=== PATIENT | male | born 1990 | race Caucasian/White ===

== ENCOUNTER → 2020-12-13 | Outpatient (CLI) | payer OTHER ==
--- NOTE | 2020-12-13 14:36 | CONS ---
CONSULTATION DATE OF SERVICE: 12/13/2020 INDICATION: A 30-year-old gentleman who has been evaluated in the sleep center for possible obstructive sleep apnea-hypopnea syndrome. 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 And on weekends from 10 p.m. to 9 a.m. Usually no problems with falling asleep, although he has TV set in bedroom. He sleeps on the side position. According to his girlfriend, he snore loudly and has episodes of stopped breathing during sleep. The patient wakes up from sleep once with dry mouth and gasping for air. In the morning the patient wakes up tired, falling asleep during the day, has sexual dysfunction. PAST SURGICAL HISTORY: None. MEDICATIONS: Lisinopril 5 mg once a day, sildenafil, sertraline 50 mg once a day. REVIEW OF SYSTEMS: Awakenings from sleep, some sexual dysfunction. FAMILY HISTORY: Acid reflux, restless legs. SOCIAL HISTORY: Negative for smoking or using alcohol. PHYSICAL EXAMINATION: GENERAL: gentleman without any distress. VITAL SIGNS: BP 142/77 , HR 82 , RR 15, height 6' 2 1/2", weight 318.8, temperature 97.0, oxygen saturation at room air 97%. HEENT: PERRLA, EOMI, evaluation of oropharynx showed tongue protrudes midline. Moderately low position of soft palate, wide pillars, big uvula. NECK: Supple, no JVD. Thyroid is not palpable. Neck is 18 inches in circumference. LUNGS: Clear to percussion and to auscultation. Good air exchange. No wheezing or rhonchi. HEART: S1, S2 regular. No murmurs, gallops, or rubs. ABDOMEN: Soft and nontender. Bowel sounds are present. No organomegaly appreciated. Obese. EXTREMITIES: No clubbing or cyanosis. SPECIALTY FINISHING UTILITY PERSON: Awake, alert, and oriented X3. Cranial nerves 2 to 7 intact. There is no fasciculation or atrophy. noted. No focal deficits observed. IMPRESSION: 1. Loud snoring, witnessed episodes of stopped breathing during sleep, small oropharyngeal air space, wide neck 18 inches in circumference, obstructive sleep apnea-hypopnea syndrome. 2. Obesity. Body mass index 39.7. 3. Hypertension. 4. History of sexual dysfunction. 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 PLAN: 1. Home sleep apnea test for evaluation of patient's breathing during sleep. 2. CPAP/BiPAP titration if sleep study confirms obstructive sleep apnea-hypopnea syndrome. 3. Preferable position during sleep on the side. 4. No driving if patient feels any sleepiness. 5. I will see patient for follow up visit to explain results of testing and following plan. Thank you very much for referring this patient for consultation. Sincerely, Reuben Read MD, PhD, FAASM Diplomat of [place] [employer] [place] [employer] Dialysis Patient Care Technician of [facility] [place] MMODL / IJN: [id number] /
== END ==
LOC: SLEEP 09:56
PROVIDERS: ATTEND Internal Medicine
DX: G47.33 Obstructive sleep apnea (adult) (pediatric) (principal); I10 Essential (primary) hypertension; E66.9 Obesity, unspecified; Z68.39 Body mass index [BMI] 39.0-39.9, adult; Z87.438 Personal history of other diseases of male genital organs; Z79.899 Other long term (current) drug therapy
CPT/HCPCS: 99211

== ENCOUNTER → 2021-02-28 | Outpatient (CLI) | payer OTHER ==
--- NOTE | 2021-02-28 21:37 | SFUN ---
SLEEP CENTER FOLLOW UP NOTE DATE OF SERVICE: 02/28/2021 INTERVAL HISTORY: 30-year-old gentleman has been followed in Sleep Center for treatment of obstructive sleep apnea-hypopnea syndrome. Recently the patient had home sleep apnea test which showed extremely severe obstructive sleep apnea-hypopnea syndrome. Subsequently, patient was started on treatment with CPAP. Today is his first visit on CPAP therapy. The patient is able to use CPAP equipment every night for the whole night, feels significantly better while using CPAP equipment comparing to how he felt before. Other only negatives he indicate is the leak from the mask. I discussed results of the sleep study with the patient in details. I checked CPAP unit. Range of the pressure 5-20 cm of water with average pressure 10.9 cm of water. Usage is 29/30 nights for more than 4 hours with average usage is 7.1 hours per night. Leak is high at 74 L/minute. Apnea-hypopnea index is 3.7, which is normal. MEDICATIONS: Lisinopril 5 mg once a day, Sertraline 15 mg once a day. PHYSICAL EXAMINATION: GENERAL: Patient in no distress. BP 128/64, HR 62, RR 15, weight 309, temp 98.5, oxygen saturation at room air 97%. Oropharynx: Moderately low position of soft palate. NECK: Supple, no JVD. Thyroid is not palpable. LUNGS: Clear to percussion and to auscultation. Good air exchange. No wheezing or rhonchi. HEART: S1, S2 regular. No murmurs, gallops, or rubs. ABDOMEN: Soft and nontender. Bowel sounds are present. No organomegaly appreciated. EXTREMITIES: No clubbing or cyanosis. CLAIMS ADJUSTER: Awake, alert, and oriented X3. Cranial nerves 2 to 7 intact. There is no fasciculation or atrophy. noted. No focal deficits observed. IMPRESSION: 1. Extremely severe obstructive sleep apnea-hypopnea syndrome; apnea-hypopnea index 67.9 with oxygen desaturation to 55%. The patient demonstrated 100% compliance with treatment benefitting from treatment. Normal apnea-hypopnea index on CPAP. 2. Significant leak. The patient is using a full-face mask. 3. Obesity. 4. Hypertension. 5. History of sexual dysfunction. 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 PLAN: 1. Patient was treated with Dream Wear under the nose fullface mask. He likes it. The mask was given to the patient. 2. Patient will continue to use PAP equipment every night for the whole night. 3. Sleep hygiene with regular time in bed for at least 7-1/2 to 8 hours. 4. Precautions related to driving. No driving if feeling sleepiness. 5. I will maintain all necessary prescription for PAP supplies including mask, tube, filters. 6. Watching weight. 7. Follow-up visit in 6 months or earlier if patient has any problems. Thank you very much for allowing me to participate in management of your patient. Sincerely, Reuben Read MD, PhD, FAASM Diplomat of [place] [employer] Board of Internal Medicine Lead Neurodiagnostic Technologist of [facility] [place] MMODL / IJN: [id number] /
== END ==
LOC: SLEEP 14:16
PROVIDERS: ATTEND Internal Medicine
DX: G47.33 Obstructive sleep apnea (adult) (pediatric) (principal); G47.36 Sleep related hypoventilation in conditions classified elsewhere; E66.9 Obesity, unspecified; I10 Essential (primary) hypertension; Z99.89 Dependence on other enabling machines and devices; Z79.899 Other long term (current) drug therapy; Z87.438 Personal history of other diseases of male genital organs

== ENCOUNTER → 2021-09-05 | Outpatient (CLI) | payer OTHER ==
--- NOTE | 2021-09-06 07:13 | SFUN ---
SLEEP CENTER FOLLOW UP NOTE DATE OF SERVICE: 09/05/2021 31-year-old gentleman has been followed in Sleep Center for treatment of obstructive sleep apnea-hypopnea syndrome. Patient continued to use his CPAP equipment every night. He is using a fullface Dream Wear mask under the nose and he likes the mask. [place] Sleepiness Scale today is 2. I checked his CPAP unit. Range of the pressure 5-20, average pressure 12.4. Usage 28/30 nights for more than 4 hours with average usage 7.7 hours per night. Leak is higher than average 43 L/minute, but at the same time, apnea-hypopnea index is totally normal 1.8. CURRENT MEDICATIONS: Lisinopril 5 mg once a day, sertraline 50 mg once a day, . PHYSICAL EXAMINATION: GENERAL: Patient in no distress. BP 141/79, HR 66, RR 14, height 6 feet 2-3/4 inches, weight 305.4 pounds, body mass index 38.4, temperature 97.4, oxygen saturation at room air 99%. Oropharynx: Moderately low position of soft palate. NECK: Supple, no JVD. Thyroid is not palpable. LUNGS: Clear to percussion and to auscultation. Good air exchange. No wheezing or rhonchi. HEART: S1, S2 regular. No murmurs, gallops, or rubs. ABDOMEN: Slightly obese. Soft and nontender. Bowel sounds are present. No organomegaly appreciated. EXTREMITIES: No clubbing or cyanosis. BOILER WELDER: Awake, alert, and oriented X3. Cranial nerves 2 to 7 intact. There is no fasciculation or atrophy. noted. No focal deficits observed. IMPRESSION: 1. Extremely severe obstructive sleep apnea-hypopnea syndrome, apnea-hypopnea index 67.9 with oxygen desaturation to 55%. The patient demonstrated great compliance with treatment, benefitting from treatment. Normal respiration on the CPAP. 2. Since we changed his mask during the previous visit leak decreased. 3. Obesity. 4. Hypertension. 5. History of sexual dysfunction. 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 PLAN: 1. Patient will continue to use PAP equipment every night for the whole night. 2. Sleep hygiene with regular time in bed for at least 7-1/2 to 8 hours. 3. Precautions related to driving. No driving if feeling sleepiness. 4. I will maintain all necessary prescription for PAP supplies including mask, tube, filters. 5. Watching weight. 6. Follow-up visit in 6 months or earlier if patient has any problems. Thank you very much for allowing me to participate in management of your patient. Sincerely, Reuben Read MD, PhD, FAASM Diplomat of [place] [employer]ties Sleep Medicine Board of [place] Board of Internal Medicine Box Inspector of [facility] [place] MMODL / QIAN: [id number] /
== END ==
LOC: SLEEP 16:46
PROVIDERS: ATTEND Internal Medicine
DX: G47.33 Obstructive sleep apnea (adult) (pediatric) (principal); E66.9 Obesity, unspecified; I10 Essential (primary) hypertension; Z87.438 Personal history of other diseases of male genital organs; Z68.41 Body mass index [BMI] 40.0-44.9, adult; Z79.899 Other long term (current) drug therapy

== ENCOUNTER → 2022-03-13 | Outpatient (CLI) | payer OTHER ==
--- NOTE | 2022-03-13 16:49 | P.PN ---
Subjective DATE: 03/13/2022 FOLLOW UP VISIT. Patient with obstructive sleep apnea hypopnea syndrome return to sleep center for follow-up visit. Information from previous visit have been reviewed. Patient is using PAP equipment every night for the whole night, getting PAP supplies in time. The patient does not have significant problems with the mask, PAP unit and humidification. [place] sleepiness scale is 2. I checked information from PAP unit. PAP unit pressure 5-20, average 11.7 cm H2O. Usage is 100 % for more then 4 hours, average 7.6 hours per night. Leak is 34 l/m, which is in acceptable range. Apnea Hypopnea Index is 2.5, which is normal. MEDICATIONS:1. Losartan During physical exam: GENERAL: A pleasant patient without any distress. VITAL SIGNS: BP 158/76, HR 88, RR 16, weight 306, height 6 foot 2 and three- quarter inches, body mass index 38.2, temperature 99 .1, oxygen saturation at room air 97 % . HEENT: PERRLA, EOMI.low position of soft palate, Mallapati3 . NECK: Supple. No JVD. LUNGS: Clear to percussion and to auscultation. Good air exchange. No wheezing or rhonchi. HEART: S1, S2 regular. ABDOMEN: Soft and nontender. Obese slightly. EXTREMITIES: No clubbing or cyanosis. ASSURANCE SERVICES MANAGER HEALTH CARE: Awake, alert, and oriented x3. No focal deficit. Impressions: 1. Obstructive sleep apnea-hypopnea syndrome. Patient demonstrated great compliance with treatment, benefiting from treatment. 2. Obesity. 3. Hypertension. 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 5. History of sexual dysfunction. Plan: 1. Continue using PAP equipment every night for the whole night. 2. To change air filter at least 1-2 times per month. 3. PAP unit should stay lower then position of the head. 4. Advised patient to remove all remaining water from humidifier canister daily and make it dry after each usage. Refill canister with fresh distilled water before each usage. 5. Sleep hygiene with regular time in bed for at least 8 hours. 6. Precautions related to driving. No driving if feel any sleepiness. 7. I will maintain prescription for PAP supplies including mask, tube, filters. 8. Follow up visit in 6 months or earlier if patient has any problems. 9. Watching and losing weight. Thank you very much for allowing me to participate in the management of your patient. Reuben Read MD, PhD, FAASM. Diplomat of [place] Board of Sleep Medicine, Sleep Medicine Board by [place] [employer] of Internal Medicine Sewer Pipe Offbearer of [facility] [place]
== END ==
LOC: SLEEP 16:20
PROVIDERS: ATTEND Internal Medicine
DX: G47.33 Obstructive sleep apnea (adult) (pediatric) (principal); E66.9 Obesity, unspecified; I10 Essential (primary) hypertension; Z87.438 Personal history of other diseases of male genital organs; Z99.89 Dependence on other enabling machines and devices; Z68.38 Body mass index [BMI] 38.0-38.9, adult

== ENCOUNTER → 2022-09-25 | Outpatient (CLI) | payer OTHER ==
--- NOTE | 2022-09-25 17:12 | P.PN ---
Subjective DATE: 09/25/2022 FOLLOW UP VISIT. Patient with obstructive sleep apnea hypopnea syndrome return to sleep center for follow-up visit. Information from previous visit have been reviewed. Patient is using PAP equipment every night for the whole night, getting PAP supplies in time. The patient does not have significant problems with the mask, PAP unit and humidification. [place] sleepiness scale is 2, which is perfect. I checked information from PAP unit. PAP unit pressure 5-20, average 12.3 cm H2O. Usage is 100 % for more then 4 hours, average 7.9 hours per night. Leak is 34 l/m, which is in acceptable range. Apnea Hypopnea Index is 1.2, which is normal. MEDICATIONS:1. Losartan 2. Sertraline 3. Ezetimibe During physical exam: GENERAL: A pleasant patient without any distress. VITAL SIGNS: BP 137/77, HR 72, RR 16 , weight 308.8, temperature 97.7, oxygen saturation at room air 99 % . HEENT: PERRLA, EOMI.low position of soft palate, Mallapati 3 . NECK: Supple. No JVD. LUNGS: Clear to percussion and to auscultation. Good air exchange. No wheezing or rhonchi. HEART: S1, S2 regular. ABDOMEN: Soft and nontender. Slightly obese EXTREMITIES: No clubbing or cyanosis. DEAD MAIL CHECKER: Awake, alert, and oriented x3. No focal deficit. Impressions: 1. Obstructive sleep apnea-hypopnea syndrome. Patient demonstrated great compliance with treatment, benefiting from treatment. 2. Hypertension. 3. Obesity. 4. Hyperlipidemia. Plan: 1. Continue using PAP equipment every night for the whole night. 2. To change air filter at least 1-2 times per month. 3. PAP unit should stay lower then position of the head. 4. Advised patient to remove all remaining water from humidifier canister daily and make it dry after each usage. Refill canister with fresh distilled water before each usage. 5. Sleep hygiene with regular time in bed for at least 8 hours. 6. Precautions related to driving. No driving if feel any sleepiness. 7. I will maintain prescription for PAP supplies including mask, tube, filters. 8. . Watching and losing weight. 9.Follow up visit in 6 months or earlier if patient has any problems Thank you very much for allowing me to participate in the management of your patient. Reuben Read MD, PhD, FAASM. Diplomat of [place] Board of Sleep Medicine, Sleep Medicine Board by [place] [employer] of Internal Medicine Traffic Police Officer of [facility] [place]
== END ==
LOC: SLEEP 16:42
PROVIDERS: ATTEND Internal Medicine
DX: G47.33 Obstructive sleep apnea (adult) (pediatric) (principal); I10 Essential (primary) hypertension; E66.9 Obesity, unspecified; E78.5 Hyperlipidemia, unspecified; Z99.89 Dependence on other enabling machines and devices
CPT/HCPCS: 99212

== ENCOUNTER 2023-12-15 10:49 | Inpatient (IN) | payer OTHER ==
[~2023-12-15 10:49] MED LIST: LIDOCAINE 1% (10MG/ML) FOR IV START INTRADERMA PRN
[2023-12-15] MEDS: LACTATED RINGERS 1,000 ML IV ONE (11:30)
--- NOTE | 2023-12-15 12:05 | P.GSHP ---
History of Present Illness H&P Date: 12/15/23 Chief Complaint: GI bleed this is a 33-year-old male presents today for colonoscopy. Patient was seen by his PCP. Found have fecal occult positive stool. Past Medical History Past Medical History: GERD/Reflux, Hyperlipidemia, Hypertension, Sleep Apnea/CPAP/BIPAP Additional Past Medical History / Comment(s): wears cpap, recent blood in stool. History of Any Multi-Drug Resistant Organisms: None Reported Additional Past Surgical History / Comment(s): wisdom teeth Past Anesthesia/Blood Transfusion Reactions: No Reported Reaction Smoking Status: Never smoker - Past Family History Father Family Medical History: Hypertension Medications and Allergies Home Medications Medication Instructions Recorded Confirmed Type Ezetimibe [Zetia] 10 mg PO DAILY 12/11/23 12/15/23 History Losartan Potassium 25 mg PO DAILY 12/11/23 12/15/23 History Pantoprazole [Protonix] 40 mg PO DAILY 12/11/23 12/15/23 History Sertraline [Zoloft] 50 mg PO DAILY 12/11/23 12/15/23 History Allergies Allergy/AdvReac Type Severity Reaction Status Date / Time No Known Allergies Allergy Verified 12/15/23 11:37 Surgical - Exam Vital Signs Temp Pulse Resp BP Pulse Ox 98.1 F 72 16 145/73 98 12/15/23 11:36 12/15/23 11:36 12/15/23 11:36 12/15/23 11:36 12/15/23 11:36 - General well developed, well nourished, no distress - Eyes PERRL - ENT normal pinna - Neck no masses - Respiratory normal expansion - Cardiovascular Rhythm: regular - Abdomen Abdomen: soft, non tender Assessment and Plan Assessment: GI bleed.. We'll perform colonoscopy.
--- NOTE | 2023-12-15 12:26 | P.OP ---
Date of Procedure: 12/15/23 Preoperative Diagnosis: GI bleed Postoperative Diagnosis: sigmoid colon polyp Near obstructing colon mass of transverse colon Procedure(s) Performed: colonoscopywith tattooing of colon tmass Anesthesia: MAC Surgeon: Koby Montenegro Pathology: other (sigmoid colon polyp,, transverse colon this) Condition: stable Disposition: PACU Description of Procedure: the patient's placed on the endoscopy table in the lateral position. He received IV sedation. Digital rectal exam performed. This revealed no abn ormalities. The flexible colonoscope was then placed patient anus passed with colon. At the level of the proximal transverse colon there was a near obstructing colon mass seen. The mass is fungating. It was biopsied. It was quite friable. It was suspicious for carcinoma. The scope could not be passed beyond the mass. The area was tattooed distally. And then the scope was withdrawn. Remainder of the transverse colon appeared normal. The descending and sigmoid colon appeared normal. In the rectosigmoid junction there was a polyp seen this removed with the snare. The remaining rectum appeared normal. Scope withdrawn for patient.
[2023-12-15] MEDS: LIDOCAINE 1% INJ 10MG/ML (20 ML MDV) ONE (15:21)
[2023-12-15] MEDS: LACTATED RINGERS 1,000 ML IV SCH (15:21)
[2023-12-15] MEDS: PROPOFOL 10 MG/ML 20 ML VIAL IV ONE (15:21)
[2023-12-16] MEDS: LOSARTAN 50 MG TAB PO SCH (08:22)
[2023-12-16 09:49] LABS: Anisocytosis Slight; Basophils # (A) 0.1 k/uL (0-0.2); Basophils % (A) 1 %; Eosinophils # (A) 0.4 k/uL (0-0.7); Eosinophils % (A) 5 %; HCT 34.6 % (39.0-53.0); Hypochromasia Marked; Lymphocytes # (A) 1.5 k/uL (1.0-4.8); Lymphocytes % (A) 19 %; MCH 21.2 pg (25.0-35.0); MCHC 28.8 g/dL (31.0-37.0); MCV 73.6 fL (80.0-100.0); Mean Platelet Volume 6.2; Microcytosis Moderate; Monocytes # (A) 0.4 k/uL (0-1.0); Monocytes % (A) 5 %; Neutrophils # (A) 5.1 k/uL (1.3-7.7); Neutrophils % (A) 68 %; Platelet Count 544 k/uL (150-450); RDW 16.9 % (11.5-15.5); WBC 7.5 k/uL (3.8-10.6)
[2023-12-16 10:22] LABS: Partial Thromboplastin Time 26.3 sec (22.0-30.0); Prothrombin Time 11.3 sec (10.0-12.5)
[2023-12-16 10:33] LABS: African American GFR (CKD) >90 (>60 ml/min/1.73 sqM); Anion Gap 6 mmol/L; Blood Urea Nitrogen 10 mg/dL (9-20); Calcium 9.3 mg/dL (8.4-10.2); Carbon Dioxide 29 mmol/L (22-30); Chloride 104 mmol/L (98-107); Glucose 103 mg/dL (74-99); Non-African American GFR(CKD) >90 (>60 ml/min/1.73 sqM); Potassium 4.3 mmol/L (3.5-5.1); Sodium 139 mmol/L (137-145)
[2023-12-16] MEDS: SODIUM CHLORIDE 0.9% 1,000 ML IV ONE ×3 (12:26→15:20)
[2023-12-16] MEDS: SODIUM CHLORIDE 0.9% 1,000 ML IV SCH (14:30)
[2023-12-16] MEDS ORDERED: ONDANSETRON 4 MG/2 ML VIAL ONE (15:32)
[2023-12-16 15:38] LABS: Glucose,Whole Blood 89 mg/dL (70-110)
[2023-12-16] MEDS: PANTOPRAZOLE 40 MG TABLET PO SCH (15:42)
[2023-12-16] MEDS: MIDAZOLAM 2 MG/2 ML VIAL IVP ONE (15:50)
[2023-12-16] MEDS: fentaNYL (PF) 50 MCG/ML 2 ML AMP IVP ONE (15:53)
[2023-12-16] MEDS ORDERED: NALOXONE 0.4 MG/ML 1 ML VIAL IV PRN (16:03)
[2023-12-16] MEDS ORDERED: ONDANSETRON 4 MG/2 ML VIAL IVP PRN (16:03)
[2023-12-16] MEDS ORDERED: diphenhydrAMINE 50 MG/ML 1 ML VIAL IVP PRN (16:03)
[2023-12-16] MEDS: DEXAMETHASONE SOD PHOSPHATE 4 MG/ML 1 ML VIAL IVP ONE (16:04)
[2023-12-16] MEDS: ONDANSETRON 4 MG/2 ML VIAL IVP ONE (16:04)
[2023-12-16] MEDS ORDERED: ceFAZolin 1 GM/50 ML BAG (PMX) ONE (16:05)
[2023-12-16] MEDS ORDERED: GLYCOPYRROLATE 0.2 MG/ML 2 ML VIAL ONE (16:05)
[2023-12-16] MEDS ORDERED: LIDOCAINE 1% INJ 10MG/ML (20 ML MDV) ONE (16:05)
[2023-12-16] MEDS ORDERED: HEPARIN SODIUM,PORCINE 5,000 UNIT/ML 1 ML VIAL ONE (16:05)
[2023-12-16] MEDS ORDERED: PROPOFOL 10 MG/ML 20 ML VIAL IV ONE (16:05)
[2023-12-16] MEDS ORDERED: SUCCINYLCHOLINE CHLORIDE 200 MG/10 ML VIAL IV ONE (16:05)
[2023-12-16] MEDS ORDERED: NEOSTIGMINE 1 MG/ML 10 ML VIAL ONE (16:05)
[2023-12-16] MEDS ORDERED: HYDROmorphone (PF) 1 MG/ML ONE (16:05)
[2023-12-16] MEDS ORDERED: KETAMINE HCL IN 0.9 % NACL 50 MG/5 ML SYRINGE ONE (16:05)
[2023-12-16] MEDS ORDERED: MIDAZOLAM 2 MG/2 ML VIAL ONE (16:05)
[2023-12-16] MEDS ORDERED: fentaNYL (PF) 50 MCG/ML 2 ML AMP ONE (16:05)
[2023-12-16] MEDS ORDERED: ROCURONIUM 10 MG/ML (5 ML VIAL) IV ONE (16:05)
[2023-12-16] MEDS ORDERED: PHENYLEPHRINE-0.9% NACL SYG 1,000 MCG/10 ML SYRINGE ONE (16:05)
--- NOTE | 2023-12-16 16:05 | P.ANPRN ---
Procedure Note - Anesthesia - Epidural/Spinal Epidural Continuous Time Out Performed: Yes Date of Procedure: 12/16/23 Procedure Start Time: 15:50 Procedure Stop Time: 16:00 Location of Patient: PreOp Indication: Acute Post-Operative Pain, Requested by Surgeon Sedation Type: Sedate with meaningful contact maintained Preparation: Sterile Dressing Position: Sitting Catheter: Indwelling Needle Guage: 18 Blood Aspirated: No Pain Paresthesia on Injection Noted: No Events: Uneventful and Well Tolerated
--- NOTE | 2023-12-16 16:08 | P.GSHP ---
History of Present Illness H&P Date: 12/15/23 Chief Complaint: transverse colon mass this is a 33-year-old male who underwent colonoscopy and EGD for workup of anemia. Patient's found have a large neurogenic a mass of the transverse colon. The patient's been admitted to the hospital for surgical resection of the mass. Patient's had complaints of some vague mid abdominal pain over the last month. Past Medical History Past Medical History: GERD/Reflux, Hyperlipidemia, Hypertension, Sleep Apnea/CPAP/BIPAP Additional Past Medical History / Comment(s): wears cpap, recent blood in stool. History of Any Multi-Drug Resistant Organisms: None Reported Additional Past Surgical History / Comment(s): wisdom teeth Past Anesthesia/Blood Transfusion Reactions: No Reported Reaction Smoking Status: Never smoker - Past Family History Father Family Medical History: Hypertension Medications and Allergies Home Medications Medication Instructions Recorded Confirmed Type Ezetimibe [Zetia] 10 mg PO DAILY 12/11/23 12/15/23 History Losartan Potassium 25 mg PO DAILY 12/11/23 12/15/23 History Pantoprazole [Protonix] 40 mg PO DAILY 12/11/23 12/15/23 History Sertraline [Zoloft] 50 mg PO DAILY 12/11/23 12/15/23 History Allergies Allergy/AdvReac Type Severity Reaction Status Date / Time No Known Allergies Allergy Verified 12/15/23 11:37 Surgical - Exam Vital Signs Temp Pulse Resp BP Pulse Ox 98.1 F 72 16 145/73 98 12/15/23 11:36 12/15/23 11:36 12/15/23 11:36 12/15/23 11:36 12/15/23 11:36 - General well developed, well nourished, no distress - Eyes PERRL - ENT normal pinna - Neck no masses - Respiratory normal expansion - Cardiovascular Rhythm: regular - Abdomen Abdomen: soft, non tender Results - Labs 12/16/23 09:37 12/16/23 09:37 Abnormal Lab Results - Last 24 Hours (Table) 12/16/23 12/16/23 Range/Units 09:37 09:37 Hgb 10.0 L (13.0-17.5) gm/dL Hct 34.6 L (39.0-53.0) % MCV 73.6 L (80.0-100.0) fL MCH 21.2 L (25.0-35.0) pg MCHC 28.8 L (31.0-37.0) g/dL RDW 16.9 H (11.5-15.5) % Plt Count 544 H (150-450) k/uL Creatinine 0.62 L (0.66-1.25) mg/dL Glucose 103 H (74-99) mg/dL Diabetes panel 12/16/23 Range/Units 09:37 Sodium 139 (137-145) mmol/L Potassium 4.3 (3.5-5.1) mmol/L Chloride 104 (98-107) mmol/L Carbon Dioxide 29 (22-30) mmol/L BUN 10 (9-20) mg/dL Creatinine 0.62 L (0.66-1.25) mg/dL Glucose 103 H (74-99) mg/dL Calcium 9.3 (8.4-10.2) mg/dL Calcium panel 12/16/23 Range/Units 09:37 Calcium 9.3 (8.4-10.2) mg/dL Pituitary panel 12/16/23 Range/Units 09:37 Sodium 139 (137-145) mmol/L Potassium 4.3 (3.5-5.1) mmol/L Chloride 104 (98-107) mmol/L Carbon Dioxide 29 (22-30) mmol/L BUN 10 (9-20) mg/dL Creatinine 0.62 L (0.66-1.25) mg/dL Glucose 103 H (74-99) mg/dL Calcium 9.3 (8.4-10.2) mg/dL Adrenal panel 12/16/23 Range/Units 09:37 Sodium 139 (137-145) mmol/L Potassium 4.3 (3.5-5.1) mmol/L Chloride 104 (98-107) mmol/L Carbon Dioxide 29 (22-30) mmol/L BUN 10 (9-20) mg/dL Creatinine 0.62 L (0.66-1.25) mg/dL Glucose 103 H (74-99) mg/dL Calcium 9.3 (8.4-10.2) mg/dL Assessment and Plan Assessment: transverse colon mass near obstructing. Patient will undergo transverse colectomy.
--- NOTE | 2023-12-16 16:12 | P.PN ---
Subjective Progress Note Date: 12/16/23 CHIEF COMPLAINT: Transverse colon mass HISTORY OF PRESENT ILLNESS: EGD and colonoscopy completed for anemia. Patient found to have near obstructing colon mass of the transverse colon. Patient has no complaints of any chest pain or shortness of breath. Denies any nausea or vomiting. Afebrile. Vital stable. Hemoglobin 10 PHYSICAL EXAM: VITAL SIGNS: Reviewed. GENERAL: Well-developed in no acute distress. ABDOMEN: Soft. Nondistended. NEUROLOGIC: Alert and oriented. Cranial nerves II through XII grossly intact. ASSESSMENT: 1. Near obstructing colon mass of the transverse colon PLAN: -Patient scheduled for transverse colectomy today with Dr. Montenegro -Keep patient n.p.o. -IV fluids ordered -Patient given a 2 L fluid bolus for hydration Physician Lacing Cutter note has been reviewed by physician. Signing provider agrees with the documented findings, assessment, and plan of care. Objective - Vital Signs Vital signs: Vital Signs Temp 98.3 F 12/16/23 07:15 Pulse 66 12/16/23 07:15 Resp 18 12/16/23 07:15 BP 121/72 12/16/23 07:15 Pulse Ox 99 12/16/23 07:15 FiO2 Intake & Output 12/15/23 12/16/23 12/16/23 18:59 06:59 18:59 Intake Total 400 350 Balance 400 350 Weight 139.8 kg Intake: IV 400 Oral 350 Other: Voiding Method Toilet Toilet # Voids 1 1 - Labs CBC & Chem 7: 12/16/23 09:37 12/16/23 09:37 Labs: Abnormal Lab Results - Last 24 Hours (Table) 12/16/23 12/16/23 Range/Units 09:37 09:37 Hgb 10.0 L (13.0-17.5) gm/dL Hct 34.6 L (39.0-53.0) % MCV 73.6 L (80.0-100.0) fL MCH 21.2 L (25.0-35.0) pg MCHC 28.8 L (31.0-37.0) g/dL RDW 16.9 H (11.5-15.5) % Plt Count 544 H (150-450) k/uL Creatinine 0.62 L (0.66-1.25) mg/dL Glucose 103 H (74-99) mg/dL
[2023-12-16] MEDS: SODIUM CHLORIDE 0.9% 100 ML with ceFAZolin 3,000 MG IV ONE (16:25)
[2023-12-16] MEDS: LACTATED RINGERS 1,000 ML IV ONE (17:06)
[2023-12-16] MEDS: ROPIVACAINE 250 MG, HYDROMORPHONE (PF) 5 MG in SODIUM CHLORIDE 0.9% 200 ML EPIDURAL PRN (17:25)
[2023-12-16] MEDS ORDERED: BENZOCAINE/MENTHOL LOZENG 1 EACH LOZENGE MUCOUS MEM PRN (17:27)
[2023-12-16] MEDS ORDERED: KETOROLAC 15 MG/ML 1 ML VIAL IVP PRN (17:27)
--- NOTE | 2023-12-16 17:27 | P.OP ---
Date of Procedure: 12/16/23 Preoperative Diagnosis: obstructing colon mass Postoperative Diagnosis: near obstructing colon massjust distal to cecum. Procedure(s) Performed: right colectomy Partial omentectomy Anesthesia: RADHAA Surgeon: Koby Montenegro Estimated Blood Loss (ml): 25 Pathology: other (right colon) Condition: stable Disposition: PACU Operative Findings: the patient's placed on the operative table in the supine position. He received general endotracheal tube anesthesia. A midline skin shows made. Using left cautery and blunt and sharp dissection the fascia external oblique was exposed. The fascia was divided midline using left cautery. The perineal cavity is entered. The Bookwalter tract with wound. The abdomen was explored. The liver appeared normal. Small bowel was run down to level terminal ileum. And at the cecum there was an obvious colon cancer. The mass was quite large. The mass measured approximately 10 cm in diameter. It was nearly obstructing the colon. This point the terminal ileum was transected with the KIM stapler and then the proximal transverse colon transected with a GI stapler. Then using the LigaSure device the mesentery the bowel was divided. The specimens of pathology. There was a small section of the omentum which was bleeding. This was transected and divided and sent to pathology as well. At this point a [id number] focal end-to-end staple anastomosis then created using KIM and TA stapler. A 3-0 GI silk sutures a crotch stitch. The window in the mesentery was closed with 0 Vicryl. The abdomen. There is no bleeding seen. The skin was closed kristi. Patient top she will present to recovery room stable condition.
[2023-12-16] MEDS: HYDROmorphone 0.5 MG/0.5 ML SYRINGE IVP ONE (17:56)
[2023-12-16 18:51] LABS: Anisocytosis Slight; Basophils # (A) 0.1 k/uL (0-0.2); Basophils % (A) 0 %; Eosinophils # (A) 0.1 k/uL (0-0.7); Eosinophils % (A) 1 %; HCT 31.7 % (39.0-53.0); Hypochromasia Marked; Lymphocytes % (A) 6 %; MCH 20.9 pg (25.0-35.0); MCHC 28.4 g/dL (31.0-37.0); MCV 73.6 fL (80.0-100.0); Microcytosis Moderate; Monocytes # (A) 0.3 k/uL (0-1.0); Monocytes % (A) 1 %; Neutrophils # (A) 16.6 k/uL (1.3-7.7); Neutrophils % (A) 91 %; Platelet Count 562 k/uL (150-450); RBC 4.31 m/uL (4.30-5.90); RDW 16.9 % (11.5-15.5); WBC 18.2 k/uL (3.8-10.6)
[2023-12-16 19:00] LABS: African American GFR (CKD) >90 (>60 ml/min/1.73 sqM); Anion Gap 7 mmol/L; Blood Urea Nitrogen 10 mg/dL (9-20); Calcium 8.2 mg/dL (8.4-10.2); Carbon Dioxide 24 mmol/L (22-30); Chloride 108 mmol/L (98-107); Glucose 110 mg/dL (74-99); Non-African American GFR(CKD) >90 (>60 ml/min/1.73 sqM); Potassium 4.5 mmol/L (3.5-5.1); Sodium 139 mmol/L (137-145)
[2023-12-16] MEDS: SERTRALINE 50 MG TAB PO SCH (20:46)
[2023-12-16] MEDS: EZETIMIBE 10 MG TAB PO SCH (20:46)
[2023-12-16] MEDS: HEPARIN SODIUM,PORCINE 5,000 UNIT/ML 1 ML VIAL SQ SCH (21:01)
[2023-12-16] MEDS: D5-0.45% NACL WITH KCL 20MEQ/L 1,000 ML IV SCH (21:15)
--- NOTE | 2023-12-17 07:06 | P.PN ---
Progress Note - Text Progress Note Date: 12/17/23 Postoperative day #1 status post right colectomy epidural catheter placed for postoperative analgesia, patient doing well epidural site okay, patient currently on combination of epidural infusion solution of Ropivacaine 0.0625% and Dilaudid 20 g per mL the infusion rate at 9 ml per hour , patient had no motor deficit epidural site okay , vital signs stable ,VAS 4-5/10 , Assessment and plan= post operative day # 1 patient doing well , patient complaining of some pain with deep breaths, and movement, for this reason I will increase the epidural infusion to 10 mL/h.
[2023-12-17] MEDS: ACETAMINOPHEN IV (For NPO) 1,000 MG in EMPTY BAG 1 BAG IVPB SCH (11:48)
--- NOTE | 2023-12-17 15:07 | P.CONS ---
History of Present Illness - Reason for Consult Consult date: 12/17/23 Transverse colon mass - Chief Complaint Microcytic anemia - History of Present Illness Mr. Santana is a pleasant 33-year-old gentleman with no significant past medical history whom we are being consulted with regards to transverse colon mass. He was noted to have microcytic anemia on routine outpatient testing with positive fecal occult blood test. He was referred to have colonoscopy due to concern for potential GI bleeding. Colonoscopy on 12/15/2023 noted near obstructing mass in the proximal transverse colon that was fungating and friable suspicious for malignancy. The scope would not be passed beyond the mass. The lesion was biopsied with remainder of the colonoscopy appearing normal. He underwent right colectomy on 12/16/2023 where he was noted he had a small section of the omentum that was bleeding. This was transected and also sent for pathology. He tolerated surgery without any significant complications. Currently, he notes mild soreness at the surgical incision without any bleeding or purulent discharge. Prior to presentation, he denied any abdominal pain, nausea, vomiting, melena, hematochezia, or bright red blood per rectum. No constitutional signs or symptoms or present. CBC is notable for hemoglobin 10 (MCV 73.6, MCH 21.2), platelets 544. BMP noted creatinine 0.62 with calcium 9.3 and no electrolyte abnormalities. Review of Systems 14 point review of systems was conducted with pertinent positives and negatives as noted per HPI Past Medical History Past Medical History: GERD/Reflux, Hyperlipidemia, Hypertension, Sleep Apnea/CPAP/BIPAP Additional Past Medical History / Comment(s): wears cpap, recent blood in stool. History of Any Multi-Drug Resistant Organisms: None Reported Additional Past Surgical History / Comment(s): wisdom teeth Past Anesthesia/Blood Transfusion Reactions: No Reported Reaction Smoking Status: Never smoker - Past Family History Father Family Medical History: Hypertension Medications and Allergies Home Medications Medication Instructions Recorded Confirmed Type Ezetimibe [Zetia] 10 mg PO DAILY 12/11/23 12/15/23 History Losartan Potassium 25 mg PO DAILY 12/11/23 12/15/23 History Pantoprazole [Protonix] 40 mg PO DAILY 12/11/23 12/15/23 History Sertraline [Zoloft] 50 mg PO DAILY 12/11/23 12/15/23 History Allergies Allergy/AdvReac Type Severity Reaction Status Date / Time No Known Allergies Allergy Verified 12/15/23 11:37 Physical Exam Vitals: Vital Signs Temp Pulse Resp BP BP Pulse Ox 12/17/23 13:05 98.4 F 82 18 152/79 96 12/17/23 11:43 95 12/17/23 07:17 98.3 F 70 17 139/78 96 12/17/23 01:45 98.4 F 80 17 145/76 96 12/16/23 22:00 91 123/65 12/16/23 20:52 91 138/63 12/16/23 20:20 73 125/64 12/16/23 19:50 71 123/70 12/16/23 19:35 75 116/72 12/16/23 19:20 98.6 F 69 20 113/64 95 12/16/23 19:05 74 116/74 12/16/23 18:55 64 122/70 12/16/23 18:54 97.6 F 66 16 122/70 93 L 12/16/23 18:20 75 16 128/56 95 12/16/23 18:05 62 16 130/60 95 12/16/23 17:50 77 16 123/59 94 L 12/16/23 17:35 77 14 125/58 96 12/16/23 17:20 98.2 F 77 14 122/58 93 L 12/16/23 16:14 82 16 140/61 97 12/16/23 15:23 79 16 142/63 99 Intake and Output 12/16/23 12/17/23 12/17/23 22:59 06:59 14:59 Intake Total 1675 1233 Output Total 310 1450 825 Balance 1365 -217 -825 Intake: IV 1675 Intake, IV Titration 1233 Amount D5-0.45% NaCl with KCl 1000 20Meq/l 1,000 ml @ 125 mls/hr IV .Q8H YASMIN Rx#: [id number] Ropivacaine 250 mg 108 Hydromorphone (Pf) 5 mg In Sodium Chloride 0.9% 200 ml @ Per Protocol EPIDURAL .Q0M PRN Rx#: [id number] Sodium Chloride 0.9% 1, 125 000 ml @ 125 mls/hr IV . Q8H YASMIN Rx#:[id number] Output: Urine 300 1450 825 Estimated Blood Loss 10 Other: Voiding Method Indwelling Catheter Indwelling Catheter - Constitutional General appearance: cooperative, no acute distress - EENT Eyes: EOMI - Respiratory Respiratory: bilateral: CTA - Cardiovascular Rhythm: regular Heart sounds: normal: S1, S2 - Gastrointestinal Gauze pad covering midline incision General gastrointestinal: no distended, soft - Integumentary Integumentary: no rash - Neurologic Neurologic: CNII-XII intact Results CBC & Chem 7: 12/16/23 18:20 12/16/23 18:20 Labs: Abnormal Lab Results - Last 24 Hours (Table) 12/16/23 12/16/23 Range/Units 18:20 18:20 WBC 18.2 H (3.8-10.6) k/uL Hgb 9.0 L (13.0-17.5) gm/dL Hct 31.7 L (39.0-53.0) % MCV 73.6 L (80.0-100.0) fL MCH 20.9 L (25.0-35.0) pg MCHC 28.4 L (31.0-37.0) g/dL RDW 16.9 H (11.5-15.5) % Plt Count 562 H (150-450) k/uL Neutrophils # 16.6 H (1.3-7.7) k/uL Chloride 108 H (98-107) mmol/L Glucose 110 H (74-99) mg/dL Calcium 8.2 L (8.4-10.2) mg/dL Assessment and Plan (1) Colonic mass Current Visit: Yes Status: Acute Code(s): K63.89 - OTHER SPECIFIED DISEASES OF INTESTINE SNOMED Code(s): 277312422 (2) Microcytic hypochromic anemia Current Visit: Yes Status: Acute Code(s): D50.9 - IRON DEFICIENCY ANEMIA, UNSPECIFIED SNOMED Code(s): 65602532 Plan: #Transverse colon mass -Noted on colonoscopy performed on 12/15/2023 for microcytic hypochromic anemia and positive FOBT -Underwent colectomy on 12/16/2023 without any significant complications -Clinically, he had no concerning signs or symptoms prior to presentation -Given the friable appearance noted on colonoscopy along with microcytic hypochromic anemia, there is high clinical suspicion for malignancy -CT chest/abdomen/pelvis with contrast ordered for staging purposes -Follow-up on pathology results -We discussed the need for follow-up in clinic, which he was agreeable to #Microcytic hypochromic anemia -Given the transverse colon lesion along with thrombocytosis, this is concerning for iron deficiency secondary to malignancy -Iron studies in addition to vitamin B12/methylmalonic acid, and folic acid ordered -Will start on IV iron while inpatient Brandy Matamoros MD
[2023-12-17] MEDS: SODIUM FERRIC GLUCONAT-SUCROSE 125 MG in SODIUM CHLORIDE 0.9% 100 ML IVPB SCH (16:07)
--- NOTE | 2023-12-17 16:13 | P.PN ---
Subjective Progress Note Date: 12/17/23 CHIEF COMPLAINT: Transverse colon mass HISTORY OF PRESENT ILLNESS: Patient is postop day #1 status post right colectomy and partial omentectomy for a near obstructing colon mass just distal to the cecum. Pathology is pending. Patient has epidural in place for pain control. He is rating his pain about a 6 out of 10. And still has some discomfort. Denies any nausea or vomiting. Denies any flatus. Afebrile. WBC elevated 18.2 hemoglobin 9 yesterday oncology added iron PHYSICAL EXAM: VITAL SIGNS: Reviewed. GENERAL: Well-developed in no acute distress. ABDOMEN: Soft. Mildly distended. Tenderness at incision site. Incisional dressing with areas of blood saturation. NEUROLOGIC: Alert and oriented. Cranial nerves II through XII grossly intact. ASSESSMENT: 1. Near obstructing colon mass of the transverse colon PLAN: -Change Optifoam silver dressing -IV Tylenol added for pain control -Continue epidural and Baez catheter -Abdominal binder ordered -Continue clear liquid diet -Follow-up on pathology results -Continue IV fluids -DVT prophylaxis subcu heparin Physician Biomedical Engineering Supervisor note has been reviewed by physician. Signing provider agrees with the documented findings, assessment, and plan of care. Objective - Vital Signs Vital signs: Vital Signs Temp 98.4 F 12/17/23 13:05 Pulse 82 12/17/23 13:05 Resp 18 12/17/23 13:05 BP 152/79 12/17/23 13:05 Pulse Ox 96 12/17/23 13:05 FiO2 Intake & Output 12/16/23 12/17/23 12/17/23 18:59 06:59 18:59 Intake Total 1675 1233 Output Total 310 1450 825 Balance 1365 -217 -825 Intake: IV 1675 Intake, IV Titration 1233 Amount D5-0.45% NaCl with KCl 1000 20Meq/l 1,000 ml @ 125 mls/hr IV .Q8H YASMIN Rx#: [id number] Ropivacaine 250 mg 108 Hydromorphone (Pf) 5 mg In Sodium Chloride 0.9% 200 ml @ Per Protocol EPIDURAL .Q0M PRN Rx#: [id number] Sodium Chloride 0.9% 1, 125 000 ml @ 125 mls/hr IV . Q8H YASMIN Rx#:[id number] Output: Urine 300 1450 825 Estimated Blood Loss 10 Other: Voiding Method Indwelling Catheter Indwelling Catheter - Labs CBC & Chem 7: 12/16/23 18:20 12/16/23 18:20 Labs: Abnormal Lab Results - Last 24 Hours (Table) 12/16/23 12/16/23 Range/Units 18:20 18:20 WBC 18.2 H (3.8-10.6) k/uL Hgb 9.0 L (13.0-17.5) gm/dL Hct 31.7 L (39.0-53.0) % MCV 73.6 L (80.0-100.0) fL MCH 20.9 L (25.0-35.0) pg MCHC 28.4 L (31.0-37.0) g/dL RDW 16.9 H (11.5-15.5) % Plt Count 562 H (150-450) k/uL Neutrophils # 16.6 H (1.3-7.7) k/uL Chloride 108 H (98-107) mmol/L Glucose 110 H (74-99) mg/dL Calcium 8.2 L (8.4-10.2) mg/dL
[2023-12-17 23:05] LABS: % Iron Saturation 2.32 (15.00-50.00); Ferritin 15.5 ng/mL (22.0-322.0)
--- NOTE | 2023-12-18 09:49 | P.CONS ---
History of Present Illness - Reason for Consult Consult date: 12/17/23 Medical management Requesting physician: Koby Montenegro - Chief Complaint Status post right colectomy and partial omentectomy for near obstructing co - History of Present Illness This is a 33-year-old gentleman past medical history significant for Microcytic anemia noted at PCPs office with positive fecal occult blood test, status post colonoscopy with tattooing of colon mass, reporting near obstructing colon mass of transverse colon. status post right colectomy and partial omentectomy for a near obstructing colon mass just distal to the cecum, postop day #1. Tolerated procedure well. Positive pain this morning but improved, on epidural; reports incisional tenderness and tightness. Afebrile ,WBC yesterday increased to 18.2, now normalized. Hemoglobin 8.8, platelets 563, renal function stable. Denies flatus, burping. Pathology 12/14 of stomach, sigmoid polyp and transverse colon mass biopsies reported mild chronic gastritis, no Helicobacter organisms seen, tubular adenoma, fragments of adenoma with high-grade dysplasia. Transverse colon mass biopsy is superficial in nature and assessment of invasive disease into the mucosal Alaris mucosa or submucosa is limited and cannot be excluded.Surgical pathology of omentum, colon, segmental resection 12/17/2023 pending. Review of Systems ROS Statement: Those systems with pertinent positive or pertinent negative responses have been documented in the HPI. ROS Other: All systems not noted in ROS Statement are negative. Past Medical History Past Medical History: GERD/Reflux, Hyperlipidemia, Hypertension, Sleep Apnea/CPAP/BIPAP Additional Past Medical History / Comment(s): wears cpap, recent blood in stool. History of Any Multi-Drug Resistant Organisms: None Reported Additional Past Surgical History / Comment(s): wisdom teeth Past Anesthesia/Blood Transfusion Reactions: No Reported Reaction Smoking Status: Never smoker - Past Family History Father Family Medical History: Hypertension Medications and Allergies Home Medications Medication Instructions Recorded Confirmed Type Ezetimibe [Zetia] 10 mg PO DAILY 12/11/23 12/15/23 History Losartan Potassium 25 mg PO DAILY 12/11/23 12/15/23 History Pantoprazole [Protonix] 40 mg PO DAILY 12/11/23 12/15/23 History Sertraline [Zoloft] 50 mg PO DAILY 12/11/23 12/15/23 History Allergies Allergy/AdvReac Type Severity Reaction Status Date / Time No Known Allergies Allergy Verified 12/15/23 11:37 Physical Exam Vitals: Vital Signs Temp Pulse Resp BP BP Pulse Ox 12/17/23 13:05 98.4 F 82 18 152/79 96 12/17/23 11:43 95 12/17/23 07:17 98.3 F 70 17 139/78 96 12/17/23 01:45 98.4 F 80 17 145/76 96 12/16/23 22:00 91 123/65 12/16/23 20:52 91 138/63 12/16/23 20:20 73 125/64 12/16/23 19:50 71 123/70 12/16/23 19:35 75 116/72 12/16/23 19:20 98.6 F 69 20 113/64 95 12/16/23 19:05 74 116/74 12/16/23 18:55 64 122/70 12/16/23 18:54 97.6 F 66 16 122/70 93 L 12/16/23 18:20 75 16 128/56 95 12/16/23 18:05 62 16 130/60 95 12/16/23 17:50 77 16 123/59 94 L 12/16/23 17:35 77 14 125/58 96 12/16/23 17:20 98.2 F 77 14 122/58 93 L 12/16/23 16:14 82 16 140/61 97 Intake and Output 12/17/23 12/17/23 12/17/23 06:59 14:59 22:59 Intake Total 1233 Output Total 1450 825 Balance -217 -825 Intake: Intake, IV Titration 1233 Amount D5-0.45% NaCl with KCl 1000 20Meq/l 1,000 ml @ 125 mls/hr IV .Q8H YASMIN Rx#: [id number] Ropivacaine 250 mg 108 Hydromorphone (Pf) 5 mg In Sodium Chloride 0.9% 200 ml @ Per Protocol EPIDURAL .Q0M PRN Rx#: [id number] Sodium Chloride 0.9% 1, 125 000 ml @ 125 mls/hr IV . Q8H YASMIN Rx#:[id number] Output: Urine 1450 825 Other: Voiding Method Indwelling Catheter PHYSICAL EXAM: VITAL SIGNS: [As above] GENERAL: Obese, alert and oriented x 3, sitting up in bed, no acute distress. HEENT: Normocephalic, atraumatic, conjunctivae normal. eyes normal. NECK: Supple, no JVD. No thyroid enlargement. No LNs CARDIOVASCULAR: S1, S2 regular.. No murmur RESPIRATION: Unlabored, equal air entry ,breath sounds diminished in the bases. No rhonchi or crackles. No bronchial breathing. ABDOMEN: Soft, status post surgery, incisional dressing with shadowing, no guarding. LEGS: No edema. no swelling NERVOUS SYSTEM: Cranial N 2-12 grossly normal. No focal deficits. Strength and sensation grossly intact. Skin: Warm and dry, no rash Results CBC & Chem 7: 12/18/23 07:01 12/18/23 07:01 Labs: Abnormal Lab Results - Last 24 Hours (Table) 12/16/23 12/16/23 Range/Units 18:20 18:20 WBC 18.2 H (3.8-10.6) k/uL Hgb 9.0 L (13.0-17.5) gm/dL Hct 31.7 L (39.0-53.0) % MCV 73.6 L (80.0-100.0) fL MCH 20.9 L (25.0-35.0) pg MCHC 28.4 L (31.0-37.0) g/dL RDW 16.9 H (11.5-15.5) % Plt Count 562 H (150-450) k/uL Neutrophils # 16.6 H (1.3-7.7) k/uL Chloride 108 H (98-107) mmol/L Glucose 110 H (74-99) mg/dL Calcium 8.2 L (8.4-10.2) mg/dL Assessment and Plan Assessment: status post right colectomy and partial omentectomy for a near obstructing colon mass just distal to the cecum, Microcytic hypochromic anemia noted at PCPs office with positive fecal occult blood test, status post colonoscopy with tattooing of colon mass, reporting near obstructing colon mass of transverse colon Thrombocytosis Pathology 12/14 of stomach, sigmoid polyp and transverse colon mass biopsies repo rted mild chronic gastritis, no Helicobacter organisms seen, tubular adenoma, fragments of adenoma with high-grade dysplasia. Transverse colon mass biopsy is superficial in nature and assessment of invasive disease into the mucosal Alaris mucosa or submucosa is limited and cannot be excluded. Surgical pathology of omentum, colon, segmental resection 12/17/2023 pending. Morbid obesity, BMI 37.5 Plan: Continue on current medication regimen ,monitoring and symptomatic treatment. Binder ordered/pending as per surgery. Pathology pending. Aggressive pulmonary toileting with incentive spirometer reinforced. Pain management, DVT prophylaxis as per general surgery. Increase ambulation as tolerated. Oncology consulted. iron studies pending. The impression and plan of care has been dictated as directed. : I performed a history and examination of this patient, discussed the same with the dictator. I agree with the dictator's note ,documented as a scribe. Any additional findings or plans will be noted.
--- NOTE | 2023-12-18 09:58 | CT ---
EXAMINATION TYPE: CT ChestAbdPelvis w con DATE OF EXAM: 12/18/2023 COMPARISON: None HISTORY: Resected transverse colon, observe for mets CT DLP: 3188.9 mGycm Automated exposure control for dose reduction was used. CONTRAST: CT scan of the chest, abdomen and pelvis is performed without Oral Contrast and with IV Contrast, pat ient injected with 100 mL of Isovue 300. FINDINGS: CT chest: There are mild to moderate bandlike densities in the posterior lower lobes consistent with mild atele ctasis or interstitial fluid. There is no suspicious lung mass or nodule There is no abnormal airspace/consolidative density. There are tiny bilateral pleural effusions but no pneumothorax. The great vessels and chest are normal there is no mediastinal, hilar or axillary adenopathy. No focal osseous lesions are seen. CT abdomen and pelvis: Gallbladder is normal without distention, pericholecystic fluid, wall thickening or gallstone. There is no biliary ductal dilatation. There is no focal mass or organomegaly involving the liver, pancreas, spleen or adrenal glands.. There is no solid renal mass or hydronephrosis. There is no retroperitoneal adenopathy or hemorrhage in the caliber of the abdominal aorta is normal. The bowel loops are normal in caliber and there is no dilatation or obstruction. There are postsurgic al changes consistent with a history of partial resection of the transverse colon. There are midline anterior abdominal wall kristi, mild inflammatory/edematous changes in the anterior mesentery and a few droplets of intraperitoneal air consistent with recent surgery. There are no omental masses are mesenteric masses or lymph nodes. There is no pelvic mass or adenopathy. There is no free fluid within the pelvis. There is a small lilo unt of free fluid within the cul-de-sac. There is a Baez catheter in the urinary bladder which is no ndistended. No focal osseous lesions are seen. IMPRESSION: 1. Postsurgical changes as described above. 2. No evidence of metastatic disease to the chest, abdomen or pelvis.
[2023-12-18 10:59] LABS: HCT 31.6 % (39.6-50.0); HGB 8.8 g/dL (13.0-17.0); MCH 20.6 pg (27.0-32.0); MCHC 27.8 g/dL (32.0-37.0); Mean Platelet Volume 9.6 FL (9.5-12.2); NRBC Per 100 WBC 0 X 10*3/uL (0.00-0.01); Platelet Count 563 X 10*3/uL (140-440); RBC 4.27 X 10*6/uL (4.40-5.60); RDW 17.8 % (11.5-14.5); WBC 7.91 X 10*3/uL (4.50-10.00)
[2023-12-18 11:10] LABS: Blood Urea Nitrogen 4.2 mg/dL (9.0-27.0); Calcium 8.9 mg/dL (8.7-10.3); Carbon Dioxide 26.8 mmol/L (21.6-31.8); Chloride 102 mmol/L (96-109); Glucose 106 mg/dL (70-110); Potassium 4.4 mmol/L (3.5-5.5); Sodium 138 mmol/L (135-145)
[2023-12-18 11:40] LABS: Basophils # (A) 0.11 X 10*3/uL (0.00-0.10); Basophils % (A) 1.4 %; Elliptocytes 2+; Eosinophils # (A) 0.22 X 10*3/uL (0.04-0.35); Eosinophils % (A) 2.8 %; Lymphocytes # (A) 1.82 X 10*3/uL (0.90-5.00); Monocytes # (A) 0.71 X 10*3/uL (0.20-1.00); Neutrophils # (A) 5.03 X 10*3/uL (1.80-7.70); Neutrophils % (A) 63.5 %
[2023-12-18] MEDS: ONDANSETRON 4 MG/2 ML VIAL IVP PRN (12:42)
--- NOTE | 2023-12-18 13:29 | P.PN ---
Subjective Progress Note Date: 12/18/23 CHIEF COMPLAINT: Transverse colon mass HISTORY OF PRESENT ILLNESS: Patient is postop day #2 status post right colectomy and partial omentectomy for a near obstructing colon mass just distal to the cecum. Pathology is pending. Patient reports his pain is controlled. He has epidural. Denies any nausea or vomiting. Denies any flatus. Sitting at bedside chair. Incisional dressing was changed yesterday. CT scan chest abdomen pelvis reports no evidence of metastatic disease PHYSICAL EXAM: VITAL SIGNS: Reviewed. GENERAL: Well-developed in no acute distress. ABDOMEN: Soft. Mildly distended. Tenderness at incision site. Dressing clean dry and intact NEUROLOGIC: Alert and oriented. Cranial nerves II through XII grossly intact. ASSESSMENT: 1. Near obstructing colon mass of the transverse colon PLAN: -Plan for epidural and Baez catheter to be discontinued tomorrow -Continue clear liquid diet -Follow-up on pathology results -Continue IV fluids -Encourage patient to increase activity level -DVT prophylaxis subcu heparin Physician Track Laying Machine Operator note has been reviewed by physician. Signing provider agrees with the documented findings, assessment, and plan of care. Objective - Vital Signs Vital signs: Vital Signs Temp 98.3 F 12/18/23 07:30 Pulse 74 12/18/23 07:30 Resp 18 12/18/23 07:30 BP 126/74 12/18/23 07:30 Pulse Ox 97 12/18/23 07:30 FiO2 Intake & Output 12/17/23 12/18/23 12/18/23 18:59 06:59 18:59 Intake Total 303.95 Output Total 1050 2325 1150 Balance -1049 -2020.05 -1150 Intake: Intake, IV Titration 303.95 Amount Ropivacaine 250 mg 303.95 Hydromorphone (Pf) 5 mg In Sodium Chloride 0.9% 200 ml @ Per Protocol EPIDURAL .Q0M PRN Rx#: [id number] Output: Urine 1050 2325 1150 Other: Voiding Method Indwelling Catheter Indwelling Catheter Indwelling Catheter - Labs CBC & Chem 7: 12/18/23 07:01 12/18/23 07:01 Labs: Abnormal Lab Results - Last 24 Hours (Table) 12/16/23 12/18/23 12/18/23 Range/Units 09:37 07:01 07:01 RBC 4.27 L (4.40-5.60) X 10*6/uL Hgb 8.8 L (13.0-17.0) g/dL Hct 31.6 L (39.6-50.0) % MCV 74.0 L (80.0-97.0) FL MCH 20.6 L (27.0-32.0) pg MCHC 27.8 L (32.0-37.0) g/dL RDW 17.8 H (11.5-14.5) % Plt Count 563 H (140-440) X 10*3/uL Basophils # 0.11 H (0.00-0.10) X 10*3/uL Elliptocytes 2+ A BUN 4.2 L (9.0-27.0) mg/dL BUN/Creatinine Ratio 7.00 L (12.00-20.00) Ratio Iron 9 L (65-175) UG/DL % Saturation 2.32 L (15.00-50.00) Ferritin 15.5 L (22.0-322.0) ng/mL
--- NOTE | 2023-12-18 14:16 | P.PN ---
Subjective Progress Note Date: 12/18/23 - Chief Complaint Status post right colectomy and partial omentectomy for near obstructing co - History of Present Illness This is a 33-year-old gentleman past medical history significant for Microcytic anemia noted at PCPs office with positive fecal occult blood test, status post colonoscopy with tattooing of colon mass, reporting near obstructing colon mass of transverse colon. status post right colectomy and partial omentectomy for a near obstructing colon mass just distal to the cecum, postop day #1. Tolerated procedure well. Positive pain this morning but improved, on epidural; reports incisional tenderness and tightness. Afebrile ,WBC yesterday increased to 18.2, now normalized. Hemoglobin 8.8, platelets 563, renal function stable. Denies flatus, burping. Pathology 12/14 of stomach, sigmoid polyp and transverse colon mass biopsies r eported mild chronic gastritis, no Helicobacter organisms seen, tubular adenoma, fragments of adenoma with high-grade dysplasia. Transverse colon mass biopsy is superficial in nature and assessment of invasive disease into the mucosal Alaris mucosa or submucosa is limited and cannot be excluded.Surgical pathology of omentum, colon, segmental resection 12/17/2023 pending. 12/18/2023 Surgical pathology of omentum, colon, segmental resection 12/17/2023 pending. Pain controlled better, continues on epidural. IV fluid hydration. Denies flatus. CT of chest abdomen pelvis pending. Afebrile, normal WBC. Hemoglobin 8.8, platelets 563. Consuming 50% of clear liquid diet, nauseated. Renal function stable. Objective - Vital Signs Vital signs: Vital Signs Temp 98.3 F 12/18/23 07:30 Pulse 74 12/18/23 07:30 Resp 18 12/18/23 07:30 BP 126/74 12/18/23 07:30 Pulse Ox 97 12/18/23 07:30 FiO2 Intake & Output 12/17/23 12/18/23 12/18/23 18:59 06:59 18:59 Intake Total 303.95 Output Total 1050 2325 1150 Balance -1049.05 -1150 Intake: Intake, IV Titration 303.95 Amount Ropivacaine 250 mg 303.95 Hydromorphone (Pf) 5 mg In Sodium Chloride 0.9% 200 ml @ Per Protocol EPIDURAL .Q0M PRN Rx#: [id number] Output: Urine 1050 2325 1150 Other: Voiding Method Indwelling Catheter Indwelling Catheter Indwelling Catheter - Exam PHYSICAL EXAM: VITAL SIGNS: [As above] GENERAL: Obese, alert and oriented x 3, sitting up in chair, no acute distress. HEENT: Normocephalic, atraumatic, conjunctivae normal. eyes normal. NECK: Supple, no JVD. No thyroid enlargement. No LNs CARDIOVASCULAR: S1, S2 regular. No murmur RESPIRATION: Unlabored, equal air entry ,breath sounds diminished in the bases. ABDOMEN: Soft, distended, status post surgery, no guarding. LEGS: No edema. no swelling NERVOUS SYSTEM: Cranial N 2-12 grossly normal. No focal deficits. Strength and sensation grossly intact. Skin: Warm and dry, no rash - Labs CBC & Chem 7: 12/18/23 07:01 12/18/23 07:01 Labs: Abnormal Lab Results - Last 24 Hours (Table) 12/16/23 12/18/23 12/18/23 Range/Units 09:37 07:01 07:01 RBC 4.27 L (4.40-5.60) X 10*6/uL Hgb 8.8 L (13.0-17.0) g/dL Hct 31.6 L (39.6-50.0) % MCV 74.0 L (80.0-97.0) FL MCH 20.6 L (27.0-32.0) pg MCHC 27.8 L (32.0-37.0) g/dL RDW 17.8 H (11.5-14.5) % Plt Count 563 H (140-440) X 10*3/uL Basophils # 0.11 H (0.00-0.10) X 10*3/uL Elliptocytes 2+ A BUN 4.2 L (9.0-27.0) mg/dL BUN/Creatinine Ratio 7.00 L (12.00-20.00) Ratio Iron 9 L (65-175) UG/DL % Saturation 2.32 L (15.00-50.00) Ferritin 15.5 L (22.0-322.0) ng/mL Assessment and Plan Assessment: status post right colectomy and partial omentectomy for a near obstructing col on mass just distal to the cecum, Microcytic hypochromic anemia noted at PCPs office with positive fecal occult blood test, status post colonoscopy with tattooing of colon mass, reporting near obstructing colon mass of transverse colon Thrombocytosis Pathology 12/14 of stomach, sigmoid polyp and transverse colon mass biopsies reported mild chronic gastritis, no Helicobacter organisms seen, tubular adenoma, fragments of adenoma with high-grade dysplasia. Transverse colon mass biopsy is superficial in nature and assessment of invasive disease into the mucosal Alaris mucosa or submucosa is limited and cannot be excluded. Surgical pathology of omentum, colon, segmental resection 12/17/2023 pending. Morbid obesity, BMI 37.5 Plan: Continue on current medication regimen ,monitoring and symptomatic treatment. Surgical pathology of omentum, colon, segmental resection 12/17/2023 pending. Aggressive pulmonary toileting with incentive spirometer reinforced. Pain management. Increase ambulation as tolerated. IV fluid hydration. Antiemetics ordered. Receiving IV iron. The impression and plan of care has been dictated as directed. : I performed a history and examination of this patient, discussed the same with the dictator. I agree with the dictator's note ,documented as a scribe. Any additional findings or plans will be noted.
--- NOTE | 2023-12-18 16:37 | P.PN ---
Progress Note - Text Progress Note Date: 12/18/23 Anesthesia Postop day #2 Status post right colectomy with epidural day #3 Patient seen and examined. Doing well. Slight nausea today. Denies vomiting or pruritus. Gross strength intact with positive ambulation. VAS less than 4. Ropivacaine 0.1% with Dilaudid 20 mcg/mL at 7 cc an hour. Objective: Vital signs reviewed Lungs: Good chest excursion Abdomen: Appears nondistended Other: Epidural Site Intact without induration. Dressing intact Neuro: No apparent motor block. Sensory within normal limits. Assessment: Status post right colectomy postop day #2 Plan: Continue current care with your medical management. Anticipate discontinue catheter tomorrow. Heparin subcu q. 8 currently. Platelets currently adequate at 563.
[2023-12-18] MEDS: hydrOXYzine pamoate 25 MG CAP PO SCH (21:40)
--- NOTE | 2023-12-19 07:52 | P.PN ---
Progress Note - Text Progress Note Date: 12/19/23 ([id number]) Anesthesia Postop day #3 Status post right colectomy with epidural day #4 Patient seen and examined. Doing well without complaint. VAS 5 out of 10. Mild nausea this morning. Now resolved. No vomiting or pruritus. Ropivacaine 0.1% with Dilaudid 20 mcg/mL at 5 cc an hour. Objective: Vital signs reviewed Lungs: Good chest excursion Abdomen: Appears nondistended Other: Epidural Site Intact without induration. Dressing intact Neuro: No apparent motor block. Sensory within normal limits. Assessment: Status post right colectomy postop day #3 Plan: Continue current care with your medical management. Anticipate discontinue catheter today. Communicated with nurse. To be pulled 6 hours after last subcu heparin dose and subcu heparin may be resumed immediately after epidural pull.
--- NOTE | 2023-12-19 13:48 | P.PN ---
Subjective 12/19/2023: Patient is status post colonoscopy after being found to have some microcytic anemia. The colonoscopy showed a large colon mass. He underwent a colectomy. He is postop day #3 today. Allergies pending, hematology oncology is following as well as started IV iron. CTA chest abdomen pelvis which essentially normal with only postop changes. Patient is feeling bit better. He is tolerating clear liquid diet. He is using incentive spirometer. He had some nausea from the epidural pump and this been discontinued this time. Objective - Vital Signs Vital signs: Vital Signs Temp 98.8 F 12/19/23 12:28 Pulse 85 12/19/23 12:28 Resp 16 12/19/23 12:28 BP 136/86 12/19/23 12:28 Pulse Ox 95 12/19/23 12:28 FiO2 Intake & Output 12/18/23 12/19/23 12/19/23 18:59 06:59 18:59 Intake Total 128.834 Output Total 1475 1150 Balance -1475 -1021.166 Intake: Intake, IV Titration 128.834 Amount Ropivacaine 250 mg 128.834 Hydromorphone (Pf) 5 mg In Sodium Chloride 0.9% 200 ml @ Per Protocol EPIDURAL .Q0M PRN Rx#: [id number] Output: Urine 1475 1150 Other: Voiding Method Indwelling Catheter Indwelling Catheter Indwelling Catheter - Exam General: The patient was sleeping but easily arousable. He is awake alert and oriented x 3 once aroused. He is sitting up in the chair no acute distress. Neck: The neck is supple, there is no thyromegaly, lymphadenopathy, tenderness or JVD. Cardiovascular: S1S2 is normal, There is a regular rate and rhythm. No murmur, rub or gallop is appreciated. Respiratory: Lungs are clear to auscultation bilaterally, respirations are non-labored, breath sounds are equal. Gastrointestinal: Soft, scant bowel sounds noted. Incision sites clean dry and intact Musculoskeletal: Normal ROM, no tenderness, There is no pedal edema. There is no calf tenderness or swelling. No cords were appreciated. Neurological: CN II-XII intact, there are no obvious motor or sensory deficits. Coordination appears grossly intact. Speech is normal. Skin: Skin is warm and dry and no rashes or lesions are noted. - Labs CBC & Chem 7: 12/18/23 07:01 12/18/23 07:01 Assessment and Plan Plan: status post right colectomy and partial omentectomy for a near obstructing colon mass just distal to the cecum, hematology oncology on case, pathology is pending, CT chest abdomen pelvis showed no other disease or lymphadenopathy. Microcytic hypochromic anemia, most likely from blood loss from a mass. Morbid obesity, BMI 37.5 Plan: Continue on current medication regimen ,monitoring and symptomatic t reatment. Surgical pathology of omentum, colon, segmental resection 12/17/2023 pending. Aggressive pulmonary toileting with incentive spirometer reinforced. Pain management. Increase ambulation as tolerated. IV fluid hydration. Antiemetics ordered. Receiving IV iron.
[2023-12-19] MEDS ORDERED: HYDROmorphone 1 MG/ML 1 ML SYRINGE IVP PRN (14:44)
--- NOTE | 2023-12-19 16:16 | P.PN ---
Subjective Progress Note Date: 12/19/23 CHIEF COMPLAINT: Transverse colon mass HISTORY OF PRESENT ILLNESS: Patient is postop day #3 status post right colectomy and partial omentectomy for a near obstructing colon mass just distal to the cecum. Patient's pain is controlled. Denies any nausea or vomiting. He does have some dizziness when he stands. He is hoping that when the epidural is discontinued today dizziness will go away. Afebrile. Pathology from EGD had showed tubular adenoma in the sigmoid colon and fragments of adenoma with high-grade dysplasia from the transverse colon mass biopsy. Pathology from surgery is pending. PHYSICAL EXAM: VITAL SIGNS: Reviewed. GENERAL: Well-developed in no acute distress. ABDOMEN: Soft. Mildly distended. Tenderness at incision site. Dressing clean dry and intact NEUROLOGIC: Alert and oriented. Cranial nerves II through XII grossly intact. ASSESSMENT: 1. Near obstructing colon mass just distal to the cecum PLAN: -Epidural and Baez catheter discontinued today -IV Dilaudid added for pain control -Continue clear liquid diet -Continue IV fluids -Encourage patient to increase activity level -Encourage patient to use incentive spirometer -DVT prophylaxis subcu heparin Physician Channel Marketing Coordinator note has been reviewed by physician. Signing provider agrees with the documented findings, assessment, and plan of care. Objective - Vital Signs Vital signs: Vital Signs Temp 98.8 F 12/19/23 12:28 Pulse 85 12/19/23 12:28 Resp 16 12/19/23 12:28 BP 136/86 12/19/23 12:28 Pulse Ox 95 12/19/23 12:28 FiO2 Intake & Output 12/18/23 12/19/23 12/19/23 18:59 06:59 18:59 Intake Total 128.834 Output Total 1475 1150 Balance -1475 -1021.166 Intake: Intake, IV Titration 128.834 Amount Ropivacaine 250 mg 128.834 Hydromorphone (Pf) 5 mg In Sodium Chloride 0.9% 200 ml @ Per Protocol EPIDURAL .Q0M PRN Rx#: [id number] Output: Urine 1475 1150 Other: Voiding Method Indwelling Catheter Indwelling Catheter Indwelling Catheter - Labs CBC & Chem 7: 12/18/23 07:01 12/18/23 07:01
--- NOTE | 2023-12-19 16:48 | P.PN ---
Subjective Progress Note Date: 12/19/23 Principal diagnosis: Transverse colon mass -Afebrile, no acute events overnight -Iron studies confirmed iron deficiency with no vitamin B12/folate deficiency -Staging CT scans revealed no evidence of metastatic disease -Currently improved today with decreased abdominal discomfort -Tolerating liquid diet without nausea or vomiting. Has not passed stool, but is passing flatulence Objective - Vital Signs Vital signs: Vital Signs Temp 98.8 F 12/19/23 12:28 Pulse 85 12/19/23 12:28 Resp 16 12/19/23 12:28 BP 136/86 12/19/23 12:28 Pulse Ox 95 12/19/23 12:28 FiO2 Intake & Output 12/18/23 12/19/23 12/19/23 18:59 06:59 18:59 Intake Total 128.834 Output Total 1475 1150 Balance -1475 -1021.166 Intake: Intake, IV Titration 128.834 Amount Ropivacaine 250 mg 128.834 Hydromorphone (Pf) 5 mg In Sodium Chloride 0.9% 200 ml @ Per Protocol EPIDURAL .Q0M PRN Rx#: [id number] Output: Urine 1475 1150 Other: Voiding Method Indwelling Catheter Indwelling Catheter Indwelling Catheter - Constitutional General appearance: Present: cooperative, no acute distress - EENT Eyes: Present: EOMI - Respiratory Respiratory: bilateral: CTA - Cardiovascular Rhythm: regular - Gastrointestinal Gastrointestinal Comment(s): Abdominal incision covered and is clean/dry/intact General gastrointestinal: Present: soft. Absent: distended, tenderness - Integumentary Integumentary: Absent: rash - Neurologic Neurologic: Present: CNII-XII intact. Absent: focal deficits - Labs CBC & Chem 7: 12/18/23 07:01 12/18/23 07:01 Assessment and Plan (1) Colonic mass Current Visit: Yes Status: Acute Code(s): K63.89 - OTHER SPECIFIED DISEASES OF INTESTINE SNOMED Code(s): 930662544 (2) Microcytic hypochromic anemia Current Visit: Yes Status: Acute Code(s): D50.9 - IRON DEFICIENCY ANEMIA, UNSPECIFIED SNOMED Code(s): 29680203 Plan: #Transverse colon mass -Noted on colonoscopy performed on 12/15/2023 for microcytic hypochromic anemia and positive FOBT -Underwent colectomy on 12/16/2023 without any significant complications -Clinically, he had no concerning signs or symptoms prior to presentation -Given the friable appearance noted on colonoscopy along with microcytic hypochr omic anemia, there is high clinical suspicion for malignancy -Staging CT scans revealed no evidence of metastatic disease -Follow-up on pathology results -Will arrange for clinic follow-up close to the time of discharge #Microcytic hypochromic anemia consistent with iron deficiency -Given the transverse colon lesion along with thrombocytosis, this is concerning for iron deficiency secondary to malignancy -Iron studies consistent with iron deficiency and no evidence of vitamin B12 or folic acid deficiency -Continue IV iron while inpatient Brandy Matamoros MD
[2023-12-20 09:24] LABS: Basophils # (A) 0.08 X 10*3/uL (0.00-0.10); Basophils % (A) 0.6 %; Eosinophils % (A) 0.8 %; HCT 36.8 % (39.6-50.0); HGB 10.6 g/dL (13.0-17.0); Lymphocytes # (A) 1.55 X 10*3/uL (0.90-5.00); Lymphocytes % (A) 11.8 %; MCH 20.8 pg (27.0-32.0); MCHC 28.8 g/dL (32.0-37.0); MCV 72.3 FL (80.0-97.0); Mean Platelet Volume 9.2 FL (9.5-12.2); Monocytes % (A) 6.9 %; NRBC Per 100 WBC 0 X 10*3/uL (0.00-0.01); Neutrophils # (A) 10.44 X 10*3/uL (1.80-7.70); Neutrophils % (A) 79.5 %; Platelet Count 673 X 10*3/uL (140-440); RBC 5.09 X 10*6/uL (4.40-5.60); RDW 18.7 % (11.5-14.5); WBC 13.12 X 10*3/uL (4.50-10.00)
--- NOTE | 2023-12-20 11:34 | P.PN ---
Subjective 12/19/2023: Patient is status post colonoscopy after being found to have some microcytic anemia. The colonoscopy showed a large colon mass. He underwent a colectomy. He is postop day #3 today. Pathology pending, hematology oncology is following as well as started IV iron. CTA chest abdomen pelvis which essentially normal with only postop changes. Patient is feeling bit better. He is tolerating clear liquid diet. He is using incentive spirometer. He had some nausea from the epidural pump and this been discontinued this time. December 20, 2023: Patient is reevaluated status post partial colectomy postop day #4. He has microcytic anemia most likely from colon mass. Today he reports pain is better. He is tolerating clears. No bowel movement. He is passing flatus. Vital signs are stable. He is afebrile. Labs show leukocytosis of 13.12. Hemoglobin is 10.6. Patient denies any chest pains pressures or shortness of breath this time. Abdominal pains improved. Objective - Vital Signs Vital signs: Vital Signs Temp 98.3 F 12/20/23 07:42 Pulse 92 12/20/23 07:42 Resp 17 12/20/23 07:42 BP 147/84 12/20/23 07:42 Pulse Ox 97 12/20/23 07:42 FiO2 Intake & Output 12/19/23 12/20/23 12/20/23 18:59 06:59 18:59 Output Total 1200 Balance -1200 Output: Urine 1200 Uretheral (Baez) 600 Other: Voiding Method Indwelling Catheter Indwelling Catheter - Exam General: The patient is awake alert and oriented x 3, up in chair. Neck: The neck is supple, there is no thyromegaly, lymphadenopathy, tenderness or JVD. Cardiovascular: S1S2 is normal, There is a regular rate and rhythm. No murmur, rub or gallop is appreciated. Respiratory: Lungs are clear to auscultation bilaterally, respirations are non-labored, breath sounds are equal. Gastrointestinal: Soft, scant bowel sounds noted. Incision sites clean dry and intact Musculoskeletal: Normal ROM, no tenderness, There is no pedal edema. There is no calf tenderness or swelling. No cords were appreciated. Neurological: CN II-XII intact, there are no obvious motor or sensory deficits. Coordination appears grossly intact. Speech is normal. Skin: Skin is warm and dry and no rashes or lesions are noted. - Labs CBC & Chem 7: 12/20/23 04:09 12/18/23 07:01 Labs: Abnormal Lab Results - Last 24 Hours (Table) 12/20/23 Range/Units 04:09 WBC 13.12 H (4.50-10.00) X 10*3/uL Hgb 10.6 L (13.0-17.0) g/dL Hct 36.8 L (39.6-50.0) % MCV 72.3 L (80.0-97.0) FL MCH 20.8 L (27.0-32.0) pg MCHC 28.8 L (32.0-37.0) g/dL RDW 18.7 H (11.5-14.5) % Plt Count 673 H (140-440) X 10*3/uL MPV 9.2 L (9.5-12.2) FL Immature Gran # 0.05 H (0.00-0.04) X 10*3/uL Neutrophils # 10.44 H (1.80-7.70) X 10*3/uL Assessment and Plan Plan: Right colonic mass status post right colectomy, postop day #4: Patient continues to improve. on heparin for DVT prophylaxis, clear liquid diet, pathology is pending, pantoprazole for GI prophylaxis Microcytic anemia: He is being followed by hematology, he has received IV iron. Hypertension: He remains on low-dose losartan 25 mg daily. Mood disorder: He remains on sertraline 50 mg daily. Hyperlipidemia: Has been restarted on Zetia 10 mg daily Morbid obesity, BMI 37.5 Plan: Continue on current medication regimen ,monitoring and symptomatic treatment. Surgical pathology of omentum, colon, segmental resection 12/17/2023 pending. Aggressive pulmonary toileting with incentive spirometer reinforced. Pain management. Increase ambulation as tolerated. IV fluid hydration. Antiemetics ordered. Receiving IV iron.
--- NOTE | 2023-12-20 15:35 | P.PN ---
Subjective Progress Note Date: 12/20/23 Patient is a 33-year-old male status post colectomy for obstructing neoplasm. He is having bowel movements at least twice. Denies any reports of blood in stools. He is off epidural. He is voiding spontaneously. No fevers or chills. No nausea and vomiting. Abdomen: Midline incision clean dry intact with kristi. Plan: 1. Advance diet to low fiber diet. 2. Anticipated disposition in 24 hours. Objective - Vital Signs Vital signs: Vital Signs Temp 98.1 F 12/20/23 14:19 Pulse 94 12/20/23 14:19 Resp 18 12/20/23 14:19 BP 145/88 12/20/23 14:19 Pulse Ox 94 L 12/20/23 14:19 FiO2 Intake & Output 12/19/23 12/20/23 12/20/23 18:59 06:59 18:59 Output Total 1200 Balance -1200 Output: Urine 1200 Uretheral (Baez) 600 Other: Voiding Method Indwelling Catheter Indwelling Catheter # Bowel Movements 1 - Labs CBC & Chem 7: 12/20/23 04:09 12/18/23 07:01 Labs: Abnormal Lab Results - Last 24 Hours (Table) 12/20/23 Range/Units 04:09 WBC 13.12 H (4.50-10.00) X 10*3/uL Hgb 10.6 L (13.0-17.0) g/dL Hct 36.8 L (39.6-50.0) % MCV 72.3 L (80.0-97.0) FL MCH 20.8 L (27.0-32.0) pg MCHC 28.8 L (32.0-37.0) g/dL RDW 18.7 H (11.5-14.5) % Plt Count 673 H (140-440) X 10*3/uL MPV 9.2 L (9.5-12.2) FL Immature Gran # 0.05 H (0.00-0.04) X 10*3/uL Neutrophils # 10.44 H (1.80-7.70) X 10*3/uL
[2023-12-21 08:34] VITALS: RESP 16
--- NOTE | 2023-12-21 12:20 | P.PN ---
Subjective 12/19/2023: Patient is status post colonoscopy after being found to have some microcytic anemia. The colonoscopy showed a large colon mass. He underwent a colectomy. He is postop day #3 today. Pathology pending, hematology oncology is following as well as started IV iron. CTA chest abdomen pelvis which essentially normal with only postop changes. Patient is feeling bit better. He is tolerating clear liquid diet. He is using incentive spirometer. He had some nausea from the epidural pump and this been discontinued this time. December 20, 2023: Patient is reevaluated status post partial colectomy postop day #4. He has microcytic anemia most likely from colon mass. Today he reports pain is better. He is tolerating clears. No bowel movement. He is passing flatus. Vital signs are stable. He is afebrile. Labs show leukocytosis of 13.12. Hemoglobin is 10.6. Patient denies any chest pains pressures or shortness of breath this time. Abdominal pains improved. December 21, 2023: Patient is reevaluated after his partial colectomy, now postop day #5. He reports getting up yesterday bending forward and having some fluid leak on his wound. This happened again today. Surgery is following him for this possible seroma. He is tolerating regular diet. He remains afebrile. Vitals remain normal. No labs show leukocytosis from yesterday. Hemoglobin is 10.6. Labs for today are pending. Overall other than the slight fluid discharge from wound the patient feels much improved. Objective - Vital Signs Vital signs: Vital Signs Temp 97.9 F 12/21/23 07:50 Pulse 81 12/21/23 07:50 Resp 16 12/21/23 07:50 BP 130/75 12/21/23 07:50 Pulse Ox 96 12/21/23 07:50 FiO2 Intake & Output 12/20/23 12/21/23 12/21/23 18:59 06:59 18:59 Other: # Bowel Movements 1 - Exam General: The patient is awake alert and oriented x 3, up in chair. Neck: The neck is supple, there is no thyromegaly, lymphadenopathy, tenderness or JVD. Cardiovascular: S1S2 is normal, There is a regular rate and rhythm. No murmur, rub or gallop is appreciated. Respiratory: Lungs are clear to auscultation bilaterally, respirations are non-labored, breath sounds are equal. Gastrointestinal: Soft, nontender kristi are clean dry and intact, there is fluid palpated from the wound, straw and blood colored Musculoskeletal: Normal ROM, no tenderness, There is no pedal edema. There is no calf tenderness or swelling. No cords were appreciated. Neurological: CN II-XII intact, there are no obvious motor or sensory deficits. Coordination appears grossly intact. Speech is normal. Skin: Skin is warm and dry and no rashes or lesions are noted. - Labs CBC & Chem 7: 12/20/23 04:09 12/18/23 07:01 Assessment and Plan Plan: Right colonic mass status post right colectomy, postop day #5: Patient continues to improve. on heparin for DVT prophylaxis, clear liquid diet, pathology is pending, pantoprazole for GI prophylaxis Possible seroma: Surgery is following Microcytic anemia: He is being followed by hematology, he has received IV iron. Hypertension: He remains on low-dose losartan 25 mg daily. Mood disorder: He remains on sertraline 50 mg daily. Hyperlipidemia: Has been restarted on Zetia 10 mg daily Leukocytosis: Will recheck in AM. May need to be restarted on antibiotics Morbid obesity, BMI 37.5 Plan: Continue on current medication regimen ,monitoring and symptomatic treatment. Surgical pathology of omentum, colon, segmental resection 12/17/2023 pending. Aggressive pulmonary toileting with incentive spirometer reinforced. Pain management. Increase ambulation as tolerated. Repeat labs in a.m., he will be reevaluated next 24 hours.
--- NOTE | 2023-12-21 13:25 | P.DS ---
Providers Date of admission: 12/16/23 11:14 Expected date of discharge: 12/21/23 Attending physician: Koby Montenegro Consults: 12/16/23 17:27 Consult Physician Routine Consulting Provider: Migue Paris Jr Consult Reason/Comments: medical management Do you want consulting provider notified?: Yes 12/17/23 12:17 Consult Physician Routine Consulting Provider: Brandy Matamoros Consult Reason/Comments: Cecum mass, S/P R Colect. Do you want consulting provider notified?: Yes Primary care physician: [facility] Course: this is a 33-year-old male who underwent outpatient colonoscopy for anemia. Patient's found have a large right colon mass. Patient's also underwent right colectomy. Patient did well postoperative. Please see hospital chart for details. Procedures: colonoscopy, right colectomy Patient Condition at Discharge: Good Plan - Discharge Summary Discharge Rx Participant: No New Discharge Prescriptions: New Ibuprofen [Motrin] 600 mg PO Q6HR PRN #40 tab PRN Reason: Pain Acetaminophen Tab [Tylenol] 650 mg PO Q6H #30 tab Docusate [Colace] 100 mg PO BID #20 capsule Levofloxacin [Levaquin] 500 mg PO DAILY 1 Days #7 tab oxyCODONE HCL [OxyIR] 5 mg PO Q6H PRN 3 Days #10 tab PRN Reason: Pain No Action Pantoprazole [Protonix] 40 mg PO DAILY Losartan Potassium 25 mg PO DAILY Ezetimibe [Zetia] 10 mg PO DAILY Sertraline [Zoloft] 50 mg PO DAILY Discharge Medication List Ezetimibe [Zetia] 10 mg PO DAILY 12/11/23 [History] Losartan Potassium 25 mg PO DAILY 12/11/23 [History] Pantoprazole [Protonix] 40 mg PO DAILY 12/11/23 [History] Sertraline [Zoloft] 50 mg PO DAILY 12/11/23 [History] Acetaminophen Tab [Tylenol] 650 mg PO Q6H #30 tab 12/21/23 [Rx] Docusate [Colace] 100 mg PO BID #20 capsule 12/21/23 [Rx] Ibuprofen [Motrin] 600 mg PO Q6HR PRN #40 tab 12/21/23 [Rx] Levofloxacin [Levaquin] 500 mg PO DAILY 1 Days #7 tab 12/21/23 [Rx] oxyCODONE HCL [OxyIR] 5 mg PO Q6H PRN 3 Days #10 tab 12/21/23 [Rx] Follow up Appointment(s)/Referral(s): Koby Montenegro MD [STAFF PHYSICIAN] - 1 Week Patient Instructions/Handouts: *Surgery [facility] - (Anesthesia) Discharge Instructions Outpatient Surgery, Colorectal Polyps (GEN), Colonoscopy (DC), Upper Endoscopy (DC) Activity/Diet/Wound Care/Special Instructions: clear liquid diet Discharge Disposition: HOME SELF-CARE
[2023-12-21 13:53] VITALS: BP 154/83; PULSE 91; TEMP 99.2
--- NOTE | 2023-12-21 15:00 | P.PN ---
Subjective Progress Note Date: 12/21/23 Principal diagnosis: Transverse colon mass -Afebrile, no acute events overnight -Noted increased serosanguineous drainage from the surgical incision yesterday, which has slowed significantly today -He is tolerating oral intake well with no nausea or vomiting and had bowel movement -He has mild soreness from the midline surgical incision that is not requiring IV pain medication Objective - Vital Signs Vital signs: Vital Signs Temp 99.2 F 12/21/23 12:36 Pulse 91 12/21/23 12:36 Resp 16 12/21/23 12:36 BP 154/83 12/21/23 12:36 Pulse Ox 95 12/21/23 12:36 FiO2 Intake & Output 12/20/23 12/21/23 12/21/23 18:59 06:59 18:59 Other: # Bowel Movements 1 - Constitutional General appearance: Present: cooperative, no acute distress - EENT Eyes: Present: EOMI ENT: Present: NA/AT - Respiratory Details: Warm and well-perfused - Cardiovascular Details: Nonlabored breathing - Gastrointestinal Gastrointestinal Comment(s): Midline incision appears clean/dry/intact with no erythema or phlebitis. Braxton in place with no serosanguineous drainage on my exam General gastrointestinal: Present: distended, soft. Absent: tenderness - Integumentary Integumentary: Absent: rash - Neurologic Neurologic: Present: CNII-XII intact. Absent: focal deficits - Labs CBC & Chem 7: 12/20/23 04:09 12/18/23 07:01 Assessment and Plan (1) Colonic mass Current Visit: Yes Status: Acute Code(s): K63.89 - OTHER SPECIFIED DISEASES OF INTESTINE SNOMED Code(s): 403273323 (2) Microcytic hypochromic anemia Current Visit: Yes Status: Acute Code(s): D50.9 - IRON DEFICIENCY ANEMIA, U NSPECIFIED SNOMED Code(s): 08819776 Plan: #Transverse colon mass -Noted on colonoscopy performed on 12/15/2023 for microcytic hypochromic anemia and positive FOBT -Underwent colectomy on 12/16/2023 without any significant complications -Clinically, he had no concerning signs or symptoms prior to presentation -Given the friable appearance noted on colonoscopy along with microcytic hypochromic anemia, there is high clinical suspicion for malignancy -Staging CT scans revealed no evidence of metastatic disease -Cleared for discharge from oncology perspective once cleared by General Surgery -We will arrange follow up in clinic to review pathology results and determine next course of actions #Microcytic hypochromic anemia consistent with iron deficiency -Given the transverse colon lesion along with thrombocytosis, this is concerning for iron deficiency secondary to malignancy -Iron studies consistent with iron deficiency and no evidence of vitamin B12 or folic acid deficiency -Received IV iron from 12/17/2023 through 12/21/2023 -He will require repeat assessment of his iron status approximately 28 days from starting IV iron inpatient Brandy Matamoros MD
== END 2023-12-21 18:58 | disposition home or self-care (01) | DRG 331 ==
LOC: ORWHC2ENDO 10:49 → 5NMEDONC 13:55 → ORWHC2ENDO 14:10 → 5NMEDONC 14:10 → ORWHC2ENDO 12-16 11:14 → 5NMEDONC 12-16 11:14
PROVIDERS: ADMIT Surgery; ATTEND Surgery
PROC: 0DBN8ZX Excision of Sigmoid Colon, Via Natural or Artificial Opening Endoscopic, Diagnostic (ICD-10-PCS; 2023-12-15)
PROC: 0DBL8ZX Excision of Transverse Colon, Via Natural or Artificial Opening Endoscopic, Diagnostic (ICD-10-PCS; 2023-12-15)
PROC: 3E00XMZ Introduction of Pigment into Skin and Mucous Membranes, External Approach (ICD-10-PCS; 2023-12-15 11:30)
PROC: 0DBP8ZX Excision of Rectum, Via Natural or Artificial Opening Endoscopic, Diagnostic (ICD-10-PCS; 2023-12-15 11:30)
PROC: 0DBU0ZZ Excision of Omentum, Open Approach (ICD-10-PCS; 2023-12-16)
PROC: 0DTF0ZZ Resection of Right Large Intestine, Open Approach (ICD-10-PCS; principal; 2023-12-16 07:30)
DX: C18.4 Malignant neoplasm of transverse colon (principal); E78.5 Hyperlipidemia, unspecified; I10 Essential (primary) hypertension; E66.01 Morbid (severe) obesity due to excess calories; Z68.37 Body mass index [BMI] 37.0-37.9, adult; D50.9 Iron deficiency anemia, unspecified; D75.839 Thrombocytosis, unspecified; K29.50 Unspecified chronic gastritis without bleeding; Z79.899 Other long term (current) drug therapy; Z82.49 Family history of ischemic heart disease and other diseases of the circulatory system; D72.829 Elevated white blood cell count, unspecified
CPT/HCPCS: 43239; 45380; 45381; 45385; 71260; 74177; 80048; 82607; 82728; 82746; 83540; 83550; 83921; 85025; 85610; 85730; 86850; 86900; 86901; 88305; 88309; 94760

== ENCOUNTER 2024-01-07 09:37 | Day surgery (SDC) | payer OTHER ==
[2024-01-02 15:52] VITALS: BMI 35.9
[~2024-01-07 09:37] MED LIST changes: +HYDROmorphone 0.5 MG/0.5 ML SYRINGE IVP PRN; -LIDOCAINE 1% (10MG/ML) FOR IV START INTRADERMA PRN; +Pre Op ABX Message 1 EACH MISC MISCELLANE ONE
[2024-01-07] MEDS: ACETAMINOPHEN TAB 500 MG TAB PO PRN (10:22)
[2024-01-07] MEDS: LACTATED RINGERS 1,000 ML IV SCH (10:24)
[2024-01-07] MEDS: DEXAMETHASONE SOD PHOSPHATE 4 MG/ML 1 ML VIAL IV ONE (10:24)
[2024-01-07] MEDS: LIDOCAINE 1% (10MG/ML) FOR IV START INTRADERMA PRN (10:24)
[2024-01-07] MEDS ORDERED: ONDANSETRON 4 MG/2 ML VIAL ONE (10:25)
[2024-01-07] MEDS: ONDANSETRON 4 MG/2 ML VIAL IVP ONE (10:25)
[2024-01-07] MEDS: HEPARIN SODIUM,PORCINE 5,000 UNIT/ML 1 ML VIAL SQ PRN (10:26)
[2024-01-07] MEDS ORDERED: SUCCINYLCHOLINE CHLORIDE 200 MG/10 ML VIAL IV ONE (10:34)
[2024-01-07] MEDS ORDERED: PROPOFOL 10 MG/ML 20 ML VIAL IV ONE (10:34)
[2024-01-07] MEDS ORDERED: fentaNYL (PF) 50 MCG/ML 2 ML AMP ONE (10:34)
[2024-01-07] MEDS ORDERED: MIDAZOLAM 2 MG/2 ML VIAL ONE (10:34)
[2024-01-07] MEDS ORDERED: KETOROLAC 15 MG/ML 1 ML VIAL ONE (10:34)
[2024-01-07] MEDS ORDERED: ePHEDrine 50 MG/ML 1 ML VIAL ONE (10:34)
[2024-01-07] MEDS ORDERED: LIDOCAINE 1% INJ 10MG/ML (20 ML MDV) ONE (10:34)
[2024-01-07] MEDS: SODIUM CHLORIDE 0.9% 50 ML with ceFAZolin 3,000 MG IV ONE (10:36)
[2024-01-07] MEDS: HEPARIN SODIUM,PORCINE 100 UNIT/ML 5 ML VIAL IV ONE (10:55)
[2024-01-07] MEDS: LIDOCAINE 1%-EPI 1:100,000 20 ML VIAL SQ ONE (10:55)
[2024-01-07] MEDS: IOPAMIDOL-370 100ML BTL MISCELLANE ONE (10:56)
--- NOTE | 2024-01-07 11:17 | P.OP ---
Date of Procedure: 01/07/24 Preoperative Diagnosis: colon cancer Postoperative Diagnosis: colon cancer Procedure(s) Performed: right supplying Port-A-Cath Anesthesia: MIKY Surgeon: Koby Montenegro Estimated Blood Loss (ml): 5 Pathology: none sent Condition: stable Disposition: PACU Operative Findings: 6-[place] Citizen Description of Procedure: The patient was placed on the operating table in the supine position. The patient received IV sedation. The patient's chest was prepped and draped in the usual sterile fashion. A roll had been placed between the shoulder blades in a longitudinal fashion. After prepping and draping the skin was anesthetized 1% local Xylocaine. And then using the Seldinger technique the subclavian vein was cannulated. A wire was placed into the vein and fluoroscopy position the wire at the atrial caval junction. Next the dilator sheath was placed over top the wire and the wire was withdrawn. The catheter was positioned at the atriocaval position. The catheter was placed through the sheath after the dilator was withdrawn. The sheath was then withdrawn. Position of the catheter was confirmed with fluoroscopy. The Port-A-Cath was connected to the catheter. The Port-A-Cath was flushed with saline and then heparinized saline. The skin was closed interrupted 3-0 Monocryl suture. Dermabond was applied. Patient tolerated procedure well and was sent to recovery room stable condition.
--- NOTE | 2024-01-07 11:26 | FL ---
EXAMINATION TYPE: FL guided central line placemt Intraoperative/procedural fluoroscopic services were provided. CLINICAL INDICATION:Male, 33 years old with history of Port-A-Cath Insertion; , [facility] Total fluoroscopy time is 4 seconds DAP: 0.2024 Gycm2 1 image. Please see the operative/procedural note for further details.
[2024-01-07 11:51] VITALS: RESP 16; TEMP 97.6
--- NOTE | 2024-01-07 12:48 | XR ---
EXAMINATION TYPE: XR chest 1V portable DATE OF EXAM: 01/07/2024 12:25 PM CLINICAL INDICATION:Male, 33 years old with history of right subclavian Port-A-Cath; [facility] COMPARISON: Chest radiographs from 02/21/2016. TECHNIQUE: XR chest 1V portable Frontal view of the chest. FINDINGS: Lungs/Pleura: There is no evidence of pleural effusion, focal consolidation, or pneumothorax. Pulmonary vascularity: Unremarkable. Heart/mediastinum: Cardiomediastinal silhouette is unremarkable. Musculoskeletal: No acute osseous pathology. Other findings: None Lines/Tubes: [id number] projecting over the right hemithorax with distal tip at the cavoatrial junction. IMPRESSION: No acute cardiopulmonary disease/process.
[2024-01-07 13:36] VITALS: BP 115/62; PULSE 72
== END 2024-01-07 13:10 | disposition home or self-care (01) ==
LOC: OR 09:37
PROVIDERS: ATTEND Surgery
DX: C18.9 Malignant neoplasm of colon, unspecified (principal); I10 Essential (primary) hypertension; E78.5 Hyperlipidemia, unspecified; F32.A Depression, unspecified; Z79.899 Other long term (current) drug therapy
CPT/HCPCS: 77001; 71045; 36561; C1788; J2250; J0330; J1644; J1642; J1100; J2405; J0690; J2001; J3010; J1885; J2704

== ENCOUNTER 2024-03-02 10:16 | Day surgery (SDC) | payer OTHER ==
[2024-03-01 10:52] VITALS: BMI 36.5
[2024-03-02 10:54] VITALS: BP 135/70; PULSE 67; RESP 16; TEMP 99
--- NOTE | 2024-03-02 11:41 | XR ---
EXAMINATION TYPE: XR chest 2V DATE OF EXAM: 03/02/2024 10:36 AM CLINICAL INDICATION:Male, 33 years old with history of C18.4 MALIGNANT NEOP; [facility] COMPARISON: Chest radiographs from 01/07/2024 TECHNIQUE: XR chest 2V Frontal view of the chest. FINDINGS: Lungs/Pleura: There is no evidence of pleural effusion, focal consolidation, or pneumothorax. Pulmonary vascularity: Unremarkable. Heart/mediastinum: Cardiomediastinal silhouette is unremarkable. Musculoskeletal: No acute osseous pathology. Other findings: None Lines/Tubes: Sfcxpc-j-Ccym projecting over the right hemithorax with distal tip at the cavoatrial junction. IMPRESSION: No acute cardiopulmonary disease/process.
[2024-03-02] MEDS: IOPAMIDOL-370 100ML BTL INJ ONE (12:10)
[2024-03-02] MEDS: ALTEPLASE 2 MG VIAL (CATHFLO) IV STA (12:23)
--- NOTE | 2024-03-02 17:48 | P.OP ---
Date of Procedure: 03/02/24 Preoperative Diagnosis: Mediport dysfunction Postoperative Diagnosis: Same Procedure(s) Performed: Mediport portogram tPA thrombolysis Anesthesia: none Surgeon: Guy Campos Pathology: none sent Condition: stable Indications for Procedure: 33-year-old gentleman with history of Mediport placement for chemotherapy presents to the [employer] [facility] for portogram due to inability to pull labs from his Mediport. He states that they are able to infuse the chemotherapy but no ability to withdraw blood for labs. Operative Findings: Mediport appears to be short within the superior vena cava. No kinks noted. Unable to withdraw on the Mediport but flushes easily. Appears to have possible fibrin sheath at the distal aspect of the Mediport After tPA thrombolysis for 5 minutes there was improvement of the flow through the Mediport Description of Procedure: After written and informed consent was obtained for the patient and all risk benefits and complications were described the procedure was performed in the [employer] [facility]. The patient was laid in the supine position. The area of the right chest was prepped and draped in usual sterile fashion. The Mediport was then accessed with a Santos needle and attempt to withdraw blood was performed with no success. The Mediport did flush easily and therefore portogram was performed. After initial portogram there was what appeared to be a fibrin sheath and the contrast was holding up within that area therefore tPA was infused 2 mg of Cat hflo into the Mediport to see if this would help the flow. After 5 minutes another portogram was performed demonstrating brisk flow through this area with decreased contrast holding up near the tip of the Mediport. Santos needle was then removed and the area was cleansed and dressings placed. Patient tolerated the procedure well. Disposition: Due to likely fibrin sheath patient was instructed that he could have IR remove the fibrin sheath down in [place] or have the Mediport replaced. Okay to infuse but unlikely to be able to withdraw blood for labs.
== END 2024-03-02 12:51 | disposition home or self-care (01) ==
LOC: CATHCVL 10:16
PROVIDERS: ATTEND Surgery
DX: T82.398A Other mechanical complication of other vascular grafts, initial encounter (principal); Y83.8 Other surgical procedures as the cause of abnormal reaction of the patient, or of later complication, without mention of misadventure at the time of the procedure
CPT/HCPCS: 36593; 71046; J1642; J2997; Q9967

== ENCOUNTER → 2024-08-06 | Outpatient (CLI) | payer OTHER ==
[2024-08-06 10:17] LABS: African American GFR (CKD) >90 (>60 ml/min/1.73 sqM); Blood Urea Nitrogen 18 mg/dL (9-20); Non-African American GFR(CKD) >90 (>60 ml/min/1.73 sqM)
--- NOTE | 2024-08-06 11:14 | CT ---
EXAMINATION TYPE: CT ChestAbdPelvis w con DATE OF EXAM: 08/06/2024 COMPARISON: 12/18/2023 HISTORY: f/u colon cancer pt had last chemo treatment hx tumor removal, left side low back pain/ scia denisa pain CT DLP: 3118.20 mGycm Automated exposure control for dose reduction was used. CONTRAST: CT scan of the chest, abdomen and pelvis is performed without Oral Contrast and with IV Contrast, pat ient injected with 100 mL of Isovue 300. FINDINGS: CT chest: There is no suspicious lung mass or nodule. There is no abnormal airspace/consolidative density or abnormal interstitial density. There is no pleural effusion, pleural thickening or pneumothorax. The great vessels and chest are normal there is no mediastinal, hilar or axillary adenopathy. No focal osseous lesions are seen. CT abdomen and pelvis: Gallbladder is normal without distention, pericholecystic fluid, wall thickening or gallstone. There is no biliary ductal dilatation. There is no focal mass or organomegaly involving the liver, pancreas, spleen or adrenal glands.. There is no solid renal mass or hydronephrosis. There is no retroperitoneal adenopathy or hemorrhage in the caliber of the abdominal aorta is normal. There are anastomotic sutures in the transverse colon and there is a incisional hernia containing loo ps of large bowel but no obstruction or edema or strangulation.. There is no pelvic mass or adenopathy. There is no free fluid within the pelvis. No focal osseous lesions are seen. Soft tissue the abdomen and pelvis are normal. IMPRESSION: No evidence of metastatic disease within the chest, abdomen or pelvis. [facility], Workstation: [id number] 08/06/2024 11:12 AM
== END | disposition home or self-care (01) ==
LOC: RADCTMAIN 09:37
PROVIDERS: ATTEND Internal Medicine
DX: C18.4 Malignant neoplasm of transverse colon (principal); E78.5 Hyperlipidemia, unspecified; I10 Essential (primary) hypertension; F41.1 Generalized anxiety disorder
CPT/HCPCS: 82565; 84520; 71260; 74177; 36415; Q9967

== ENCOUNTER → 2024-08-11 | Outpatient (CLI) | payer OTHER ==
--- NOTE | 2024-08-11 20:11 | MR ---
EXAMINATION TYPE: MR lumbar spine wo/w con DATE OF EXAM: 08/11/2024 7:31 PM COMPARISON: None. CLINICAL INDICATION: Male, 34 years old with history of C18.4 MALIGNANT NEOPLASM OF TRANSVERSE COLON, Low back pain into left side x5 weeks, Hx colon cancer TECHNIQUE: Multiplanar, MultiSpin echo imaging of the lumbar spine was performed. CONTRAST: The patient was injected with 14 mL intravenous Gadobutrol gadolinium contrast. FINDINGS: L1-L2: Normal disc appearance without desiccation. No herniation, protrusion or disc bulging. No ca nal stenosis is present. Foramina are patent bilaterally. L2-L3: Moderate decrease in small ossified compatible degenerative disc disease. Mild posterior disc bulge with minimal effacement of ventral thecal sac. No evidence of disc herniation or central stenos is. L3-L4: Moderate decreased signal and loss of compatible with degenerative disc disease. Extruded disc herniation posterocentrally and towards the left with a sequestered component felt to be present pos terior to the L3 vertebral segment posterior central and to the left. Sequestered component measures 1.1 cm. Extruded disc herniation which extends cranially measures 2.0 cm craniocaudal dimension. Ther e is evidence of left lateral recess stenosis and edema of the left-sided exiting nerve root. L4-L5: Moderate decreased signal and loss of height compatible with degenerative disc disease. Wedding Photographer ocentral small disc herniation and minimal extrusion suggested. Minimal effacement of ventral thecal sac. No evidence for central stenosis or lateral recess stenosis. L5-S1: Moderate decreased signal and loss of height compatible with degenerative disc disease. Wedding Photographer ior disc bulge without herniation. No central stenosis or foraminal encroachment. Lumbar segments are intact. No paraspinal masses are identified. Conus medullaris has a normal appe arance. No pathologic enhancement. IMPRESSION: 1. Multilevel degenerative disc disease. 2. Extruded disc herniation at the L3-4 level with cranial migration of disc material and sequestered component paracentral into the left resulting in left lateral recess stenosis and edema of the exiti ng nerve root. 3. Small disc herniation at L4-5. [facility], , 08/11/2024 8:09 PM
== END | disposition home or self-care (01) ==
LOC: RADMRIMAIN 18:23
PROVIDERS: ATTEND Internal Medicine
DX: M51.369 Other intervertebral disc degeneration, lumbar region without mention of lumbar back pain or lower extremity pain (principal); M51.26 Other intervertebral disc displacement, lumbar region; C18.4 Malignant neoplasm of transverse colon; I10 Essential (primary) hypertension; E78.5 Hyperlipidemia, unspecified; F41.1 Generalized anxiety disorder; M48.061 Spinal stenosis, lumbar region without neurogenic claudication; R60.9 Edema, unspecified
CPT/HCPCS: 72158; A9585

== ENCOUNTER 2024-09-06 08:46 | Day surgery (SDC) | payer OTHER ==
[2024-09-03 10:49] VITALS: BMI 38.2
[~2024-09-06 08:46] MED LIST changes: +LACTATED RINGERS 1,000 ML IV SCH; +LIDOCAINE 1% (10MG/ML) FOR IV START INTRADERMA PRN; -Pre Op ABX Message 1 EACH MISC MISCELLANE ONE; +SCOPOLAMINE 1 MG/72 HR PATCH TRANSDERM ONE; +droPERidol 5 MG/2 ML VIAL IVP ONE
[2024-09-06 09:15] VITALS: RESP 16; TEMP 98.3
[2024-09-06] MEDS: LACTATED RINGERS 500 ML IV ONE (09:17)
[2024-09-06] MEDS: HEPARIN SODIUM,PORCINE 5,000 UNIT/ML 1 ML VIAL SQ PRN (09:18)
[2024-09-06] MEDS: ACETAMINOPHEN TAB 500 MG TAB PO PRN (09:18)
[2024-09-06] MEDS: DEXAMETHASONE SOD PHOSPHATE 4 MG/ML 1 ML VIAL IV ONE (09:24)
[2024-09-06] MEDS: ONDANSETRON 4 MG/2 ML VIAL IVP ONE (09:24)
--- NOTE | 2024-09-06 09:40 | P.GSHP ---
History of Present Illness H&P Date: 09/06/24 Chief Complaint: History of colon cancer Is a 34-year-old male with previous history of colon cancer. Patient presents today for Port-A-Cath removal. Past Medical History Past Medical History: Cancer, GERD/Reflux, Hyperlipidemia, Hypertension, Sleep Apnea/CPAP/BIPAP Additional Past Medical History / Comment(s): CPAP USE, COLON CANCER-CURRENTLY RECEIVING CHEMO, VERY SENSITIVE SKIN, HERNIATED DISC WITH BACK PAIN. History of Any Multi-Drug Resistant Organisms: None Reported Past Surgical History: Bowel Resection Additional Past Surgical History / Comment(s): [place] teeth removed, COLONOSCOPY, RIGHT COLOECTOMY 12/16/23, [id number] PLACEMENT. Past Anesthesia/Blood Transfusion Reactions: No Reported Reaction Smoking Status: Never smoker - Past Family History Father Family Medical History: Pulmonary Embolus Medications and Allergies Home Medications Medication Instructions Recorded Confirmed Type Ezetimibe [Zetia] 10 mg PO QAM 12/11/23 09/06/24 History Losartan Potassium 25 mg PO QAM 12/11/23 09/06/24 History Sertraline [Zoloft] 50 mg PO QAM 12/11/23 09/06/24 History Omeprazole 20 mg PO QAM 02/27/24 09/06/24 History Allergies Allergy/AdvReac Type Severity Reaction Status Date / Time No Known Allergies Allergy Verified 09/06/24 09:10 Surgical - Exam Vital Signs Temp Pulse Resp BP Pulse Ox 98.3 F 82 16 123/57 98 09/06/24 09:10 09/06/24 09:10 09/06/24 09:10 09/06/24 09:10 09/06/24 09:10 - General well developed, well nourished, no distress - Eyes PERRL - ENT normal pinna - Neck no masses - Respiratory normal expansion - Cardiovascular Rhythm: regular - Abdomen Abdomen: soft, non tender Assessment and Plan Assessment: History of colon cancer. Will perform Port-A-Cath removal.
[2024-09-06] MEDS ORDERED: MIDAZOLAM 2 MG/2 ML VIAL ONE (09:43)
[2024-09-06] MEDS: ceFAZolin 3 GM in SODIUM CHLORIDE 0.9% 100 ML IVPB PRN (09:43)
[2024-09-06] MEDS ORDERED: KETAMINE HCL IN 0.9 % NACL 50 MG/5 ML SYRINGE ONE (09:43)
[2024-09-06] MEDS ORDERED: PROPOFOL 10 MG/ML 20 ML VIAL IV ONE (09:43)
[2024-09-06] MEDS: LIDOCAINE 1%-EPI 1:100,000 20 ML VIAL SQ ONE ×2 (10:03)
--- NOTE | 2024-09-06 10:24 | P.OP ---
Date of Procedure: 09/06/24 Preoperative Diagnosis: History of colon cancer Postoperative Diagnosis: History of colon cancer Procedure(s) Performed: Removal of Port-A-Cath Anesthesia: MAC Surgeon: Koby Montenegro Estimated Blood Loss (ml): 5 Pathology: none sent Condition: stable Disposition: PACU Description of Procedure: The patient is placed on the operative table in the supine position. He received gen IV sedation. The right chest wall was prepped and draped you sterile fashion. The skin was anesthetized 1% local Xylocaine. The skin was incised 15 blade. Using blunt sharp dissection with cautery the Port-A-Cath was dissected free. The wound was gerd for hemostasis. There is no bleeding seen. The skin was closed with interrupted 3-0 Monocryl suture. Dermabond dressing applied.
[2024-09-06 10:28] VITALS: BP 98/67; PULSE 73
== END 2024-09-06 10:47 | disposition home or self-care (01) ==
LOC: OR 08:46
PROVIDERS: ATTEND Surgery
DX: Z45.2 Encounter for adjustment and management of vascular access device (principal); E78.5 Hyperlipidemia, unspecified; I10 Essential (primary) hypertension; F41.9 Anxiety disorder, unspecified; F32.A Depression, unspecified; G47.33 Obstructive sleep apnea (adult) (pediatric); K21.9 Gastro-esophageal reflux disease without esophagitis; Z85.038 Personal history of other malignant neoplasm of large intestine; Z99.89 Dependence on other enabling machines and devices; Z79.899 Other long term (current) drug therapy
CPT/HCPCS: 36590; J2250; J1644; J1100; J0690; J2405; J2704